=== PATIENT | female | born 1940 | race Caucasian/White ===

== ENCOUNTER 2018-09-10 09:30 | Day surgery (SDC) | payer OTHER ==
[~2018-09-10] VITALS: Ht 160 cm; Wt 115.0 kg
[~2018-09-10 09:30] MED LIST: AMLO10 PO; ATOR20 PO; METTREX2.5 PO; Neurontin300 MG PO; Prinivil10 MG PO; Synthroid25 MCG PO
== END 2018-09-10 11:29 | disposition home or self-care (01) ==
LOC: ORSCSDS 09:30
PROVIDERS: Internal Medicine Gastroenterology
PROC: 0DBK8ZX Excision of Ascending Colon, Via Natural or Artificial Opening Endoscopic, Diagnostic (ICD-10-PCS; principal; 2018-09-10 10:45)
PROC: 0DBM8ZX Excision of Descending Colon, Via Natural or Artificial Opening Endoscopic, Diagnostic (ICD-10-PCS; principal; 2018-09-10 10:45)
DX: Z12.11 Encounter for screening for malignant neoplasm of colon (principal); D12.2 Benign neoplasm of ascending colon; D12.4 Benign neoplasm of descending colon; K57.30 Diverticulosis of large intestine without perforation or abscess without bleeding; K64.8 Other hemorrhoids; I10 Essential (primary) hypertension; J44.9 Chronic obstructive pulmonary disease, unspecified; G47.33 Obstructive sleep apnea (adult) (pediatric); E66.01 Morbid (severe) obesity due to excess calories; Z68.41 Body mass index [BMI] 40.0-44.9, adult; Z79.899 Other long term (current) drug therapy
CPT/HCPCS: 88305; J7120

== ENCOUNTER 2018-11-19 21:29 | Emergency (ER) | payer OTHER ==
[~2018-11-19] VITALS: Ht 160 cm; Wt 114.3 kg
[2018-11-19] MEDS ORDERED: STIOLTO RESPIMAT4 GM INH (21:49)
[2018-11-19] MEDS ORDERED: Mobic15 MG PO (21:50)
[2018-11-19] MEDS ORDERED: TRAZ50 PO (21:50)
[2018-11-19] MEDS ORDERED: ALBU90OI61 INH (21:52)
[2018-11-20] MEDS ORDERED: EPIPEN 2-P0.3 MG/0.3 IM (00:38)
[2018-11-20] MEDS ORDERED: Prednisone20 MG PO (00:38)
== END 2018-11-20 00:58 | disposition home or self-care (01) ==
LOC: ER 21:29
DX: T78.3XXA Angioneurotic edema, initial encounter (principal); T46.4X5A Adverse effect of angiotensin-converting-enzyme inhibitors, initial encounter; Z88.8 Allergy status to other drugs, medicaments and biological substances; Z79.899 Other long term (current) drug therapy; I10 Essential (primary) hypertension; J44.9 Chronic obstructive pulmonary disease, unspecified; Z87.891 Personal history of nicotine dependence
CPT/HCPCS: 96374; 99283-25

== ENCOUNTER → 2021-12-14 | Outpatient (CLI) | payer OTHER ==
[~2021-12-14] MED LIST changes: +ALBU90OI61 INH; +EPIPEN 2-P0.3 MG/0.3 IM; +Mobic15 MG PO; +Prednisone20 MG PO; +STIOLTO RESPIMAT4 GM INH; +TRAZ50 PO
== END | disposition home or self-care (01) ==
LOC: PLD 08:09 → LAB SHORT 08:09
DX: L82.1 Other seborrheic keratosis (principal)
CPT/HCPCS: 88305

== ENCOUNTER → 2023-04-24 | Outpatient (CLI) | payer OTHER | LOC: LAB SHORT 16:00 → LAB 16:00 | PROVIDERS: Family Medicine | DX: Z79.899 Other long term (current) drug therapy (principal) | CPT/HCPCS: G0480 ==

== ENCOUNTER 2024-07-09 11:51 | Emergency (ER) | payer OTHER ==
[~2024-07-09] VITALS: Ht 160 cm; Wt 66.2 kg
[2024-07-09 12:07] VITALS: BP 179/76
[2024-07-09 12:28] LABS: BASOPHILS ABSOLUTE AUTO 0.04 K/mm3 (0.00-0.23); BASOPHILS PERCENT AUTO 1 % (0-2); EOSINOPHILS ABSOLUTE AUTO 0.13 K/mm3 (0.00-0.68); EOSINOPHILS PERCENT AUTO 3 % (0-6); Hematocrit 33.5 % (33.0-51.0); Hemoglobin 11.3 g/dL (11.5-16.0); IMMATURE GRAN ABSOLUTE AUTO 0.01 K/mm3 (0.00-0.10); IMMATURE GRAN PERCENT AUTO 0 % (0-1); LYMPHOCYTES ABSOLUTE AUTO 1.16 K/mm3 (0.84-5.20); LYMPHOCYTES PERCENT AUTO 22 % (21-46); MONOCYTES ABSOLUTE AUTO 0.36 K/mm3 (0.16-1.47); MONOCYTES PERCENT AUTO 7 % (4-13); Mean Corpuscular HGB Conc 33.7 g/dL (31.5-36.5); Mean Corpuscular Volume 98 fL (80-100); Mean Platelet Volume 8.7 fL (9.1-12.4); NEUTROPHILS ABSOLUTE AUTO 3.49 K/mm3 (1.96-9.15); NEUTROPHILS PERCENT AUTO 67 % (41-73); Platelet Count 274 K/mm3 (150-400); RDW Coefficient Variation 14.3 % (11.7-14.2); Red Blood Cell Count 3.42 M/mm3 (3.80-5.20); White Blood Cell Count 5.19 K/mm3 (4.00-11.30)
[2024-07-09 13:09] LABS: Albumin, Blood 2.9 g/dL (3.4-5.0); Albumin/Globulin Ratio 0.9 (0.8-1.8); Bilirubin, Total 0.6 mg/dL (0.1-1.0); Bun/Creatinine Ratio 20.7 (12.0-20.0); Calcium, Blood 9.2 mg/dL (8.5-10.1); Creatinine, Blood 0.63 mg/dL (0.40-1.00); Globulin, Blood 3.3 g/dL (2.2-4.0); Potassium, Blood 3.1 mmol/L (3.5-5.5); Total Protein, Blood 6.2 g/dL (6.4-8.2)
[2024-07-09] MEDS ORDERED: Veetids 500500 MG PO (13:36)
== END 2024-07-09 14:02 | disposition home or self-care (01) ==
LOC: ER 11:51
PROVIDERS: Physician Assistant
DX: N39.0 Urinary tract infection, site not specified (principal); G47.30 Sleep apnea, unspecified; M79.7 Fibromyalgia; I10 Essential (primary) hypertension; E03.9 Hypothyroidism, unspecified; J44.9 Chronic obstructive pulmonary disease, unspecified; Z87.891 Personal history of nicotine dependence; Z88.8 Allergy status to other drugs, medicaments and biological substances; Z79.899 Other long term (current) drug therapy
CPT/HCPCS: 80053; 85025; 99283

== ENCOUNTER → 2024-12-14 | Day surgery (SDC) | payer OTHER ==
[~2024-12-14] MED LIST changes: +FURO20 PO; +LEVSOD25 PO; +METHOTREXATE2.5 M3 PO; +METO25 PO; +METO25ER PO; +NAPR220 PO; +POTA10T PO; +VITAMIN B12 PO; +VITAMIN D310 MC4 PO; +Veetids 500500 MG PO; +[UNRECOGNIZED DRUG - OTHER] PO
[2024-12-14 16:19] LABS: BASOPHILS ABSOLUTE AUTO 0.05 K/mm3 (0.00-0.23); BASOPHILS PERCENT AUTO 1 % (0-2); EOSINOPHILS ABSOLUTE AUTO 0.13 K/mm3 (0.00-0.68); EOSINOPHILS PERCENT AUTO 2 % (0-6); Hematocrit 34.8 % (33.0-51.0); Hemoglobin 11.7 g/dL (11.5-16.0); IMMATURE GRAN ABSOLUTE AUTO 0.02 K/mm3 (0.00-0.10); IMMATURE GRAN PERCENT AUTO 0 % (0-1); LYMPHOCYTES ABSOLUTE AUTO 1.25 K/mm3 (0.84-5.20); LYMPHOCYTES PERCENT AUTO 15 % (21-46); MONOCYTES ABSOLUTE AUTO 0.94 K/mm3 (0.16-1.47); MONOCYTES PERCENT AUTO 11 % (4-13); Mean Corpuscular HGB 32.9 pg (26.0-34.0); Mean Corpuscular HGB Conc 33.6 g/dL (31.5-36.5); Mean Corpuscular Volume 98 fL (80-100); Mean Platelet Volume 8.9 fL (9.1-12.4); NEUTROPHILS PERCENT AUTO 72 % (41-73); Platelet Count 371 K/mm3 (150-400); RDW Coefficient Variation 13.5 % (11.7-14.2); RDW Standard Deviation 48.3 fL (35.1-46.3); Red Blood Cell Count 3.56 M/mm3 (3.80-5.20); White Blood Cell Count 8.59 K/mm3 (4.00-11.30)
[2024-12-14 18:50] LABS: Bun/Creatinine Ratio 21.4 (12.0-20.0); Calcium, Blood 9.4 mg/dL (8.5-10.1); Creatinine, Blood 0.56 mg/dL (0.40-1.00); Potassium, Blood 3.6 mmol/L (3.5-5.5)
== END ==
LOC: PRE 13:43
PROVIDERS: Orthopaedic Surgery
DX: M16.11 Unilateral primary osteoarthritis, right hip (principal); Z01.810 Encounter for preprocedural cardiovascular examination; Z01.812 Encounter for preprocedural laboratory examination; Z01.818 Encounter for other preprocedural examination
CPT/HCPCS: 36415; 80048; 85025; 93005; 93010

== ENCOUNTER 2024-12-29 07:45 | Day surgery (SDC) | payer OTHER ==
[~2024-12-29] VITALS: Ht 157.5 cm; Wt 57.6 kg
[2024-12-29] VITALS (12 sets, daily range): BP systolic 141–178; BP diastolic 60–81
[~2024-12-29 07:45] MED LIST changes: +CeFAZolin Sodium 2,000 MG in NS 100 ML IV SCH; +Chlorhexidine Mouth Care 15 ML UDC MT SCH; +Ropivacaine 0.5% HCl/Pf 123.125 MG,EPINEPHrine HCL 0.25 MG,Ketorolac Tromethamine 15 MG... INFIL SCH; -VITAMIN B12 PO; +VITAMIN B12500 MCG PO
[2024-12-29] MEDS ORDERED: Tranexamic Acid 100 ML IV SCH (07:47)
--- NOTE | 2024-12-29 08:43 | NUR ---
History, Chart, Medications and Allergies reviewed before start of procedure. Patient confirms NPO status and agrees with scheduled surgery. Daughter, Cira, at bedside with patient. Cira helped reconcile medication list, pt does not keep track of medications. Assistance needed to dress and transfer from w/c to bed due to c/o pain.
[2024-12-29] MEDS ORDERED: CeFAZolin Sodium 2,000 MG VIAL ONE (08:57)
--- NOTE | 2024-12-29 09:08 | NUR ---
RIGO LUNA PLACED PER PATIENT REQUEST.
[2024-12-29] MEDS ORDERED: Midazolam HCl 1MG / ML 2ML Vial ONE (10:24)
[2024-12-29] MEDS ORDERED: Dexamethasone Sod Phos 10 MG/ML 1ML VIAL ONE (10:38)
[2024-12-29] MEDS ORDERED: Ondansetron HCl 2 MG / ML 2ML Vial ONE (10:38)
[2024-12-29] MEDS ORDERED: Phenylephrine HCl 10mg/ml 1 ml Vial ONE ×2 (10:39→13:52)
[2024-12-29] MEDS ORDERED: Ondansetron HCl 2 MG / ML 2ML Vial IV PRN ×2 (11:00→11:10)
[2024-12-29] MEDS ORDERED: Albuterol 2.5 MG/3 ML VIAL INH PRN (11:00)
[2024-12-29] MEDS ORDERED: FentaNYL Citrate 50 MCG/ML 2 ML Injection IV PRN ×2 (11:00→11:05)
[2024-12-29] MEDS ORDERED: HYDROmorphone HCl/Pf 1MG SYR IV PRN ×3 (11:00→11:10)
[2024-12-29] MEDS ORDERED: HYDROcodone 5-APAP 325 TAB PO PRN (11:10)
[2024-12-29] MEDS ORDERED: Prochlorperazine Edisylate 10 mg Vial IV PRN (11:15)
[2024-12-29] MEDS ORDERED: Metoclopramide HCl 5MG / ML 2ML Vial IV PRN (11:20)
[2024-12-29] MEDS ORDERED: Magnesium Hydroxide Conc 10 ML UDC PO PRN (11:20)
[2024-12-29] MEDS ORDERED: Ketorolac Tromethamine 15mg Vial IV SCH (12:00)
[2024-12-29] MEDS ORDERED: FentaNYL Citrate 50 MCG/ML 2 ML Injection ONE (12:52)
--- NOTE | 2024-12-29 13:20 | NUR ---
POST OP ARRIVAL TO SURGICAL UNIT VIA HOSPITAL BED. ASSESSMENT CHARTED. PAIN TOLERABLE. CRYOTHERAPY TO R HIP. NO DRNG NOTED TO DRSG. SNACKS & DRINKS GIVEN.
[2024-12-29] MEDS ORDERED: ELIQUIS2.5 MG PO (15:45)
--- NOTE | 2024-12-29 17:05 | NUR ---
DISCHARGE PT WORKED w/ THERAPY. PAIN REASONABLY CONTROLLED. EATING, DRINKING, & VOIDING WELL. PT IS VERY WEAK & STRUGGLING TO KEEP R FOOT STRAIGHT BUT WANTS TO GO HOME & WILL HAVE FAMILY 07/01. IVONNE & DONATO SENT w/ PT. ESCORTED OUT VIA W/C.
[2024-12-29] MEDS ORDERED: CeFAZolin Sodium 2,000 MG in NS 100 ML IV SCH (18:00)
== END 2024-12-29 17:17 | disposition home or self-care (01) ==
LOC: ORSCMMR 07:45 → ORD 09:15 → ORSCMMR 09:15 → SURS 13:15 → ORD 14:00 → ORSCMMR 17:17
PROVIDERS: Orthopaedic Surgery
PROC: 0SR90J9 Replacement of Right Hip Joint with Synthetic Substitute, Cemented, Open Approach (ICD-10-PCS; principal; 2024-12-29 09:15)
DX: M16.11 Unilateral primary osteoarthritis, right hip (principal); I10 Essential (primary) hypertension; Z79.899 Other long term (current) drug therapy
CPT/HCPCS: 72170; 97110; 97116; 97162; 97530; A9270; C1713; C1776; J0165; J0690; J0735; J1100; J1885; J2250; J2371; J2405; J2704; J2795; J3010; J7120

== ENCOUNTER 2025-01-02 17:06 | Inpatient (IN) | payer OTHER ==
[~2025-01-02] VITALS: Ht 157.5 cm; Wt 68.6 kg
[~2025-01-02 17:06] MED LIST changes: -CeFAZolin Sodium 2,000 MG in NS 100 ML IV SCH; -Chlorhexidine Mouth Care 15 ML UDC MT SCH; +ELIQUIS2.5 MG PO; -Ropivacaine 0.5% HCl/Pf 123.125 MG,EPINEPHrine HCL 0.25 MG,Ketorolac Tromethamine 15 MG... INFIL SCH
[2025-01-02 18:23] LABS: BASOPHILS ABSOLUTE AUTO 0.04 K/mm3 (0.00-0.23); BASOPHILS PERCENT AUTO 0 % (0-2); EOSINOPHILS ABSOLUTE AUTO 0.17 K/mm3 (0.00-0.68); EOSINOPHILS PERCENT AUTO 2 % (0-6); Hematocrit 25.9 % (33.0-51.0); Hemoglobin 8.7 g/dL (11.5-16.0); IMMATURE GRAN ABSOLUTE AUTO 0.06 K/mm3 (0.00-0.10); IMMATURE GRAN PERCENT AUTO 1 % (0-1); LYMPHOCYTES ABSOLUTE AUTO 1.82 K/mm3 (0.84-5.20); LYMPHOCYTES PERCENT AUTO 19 % (21-46); MONOCYTES ABSOLUTE AUTO 1.61 K/mm3 (0.16-1.47); MONOCYTES PERCENT AUTO 16 % (4-13); Mean Corpuscular HGB Conc 33.6 g/dL (31.5-36.5); Mean Corpuscular Volume 99 fL (80-100); NEUTROPHILS ABSOLUTE AUTO 6.13 K/mm3 (1.96-9.15); NEUTROPHILS PERCENT AUTO 62 % (41-73); NRBC ABSOLUTE 0.00 K/mm3 (0.00-0.02); NRBC Auto 0.0 /100 WBC (0.0-0.2); Platelet Count 461 K/mm3 (150-400); RDW Coefficient Variation 14.4 % (11.7-14.2); RDW Standard Deviation 49.5 fL (35.1-46.3)
[2025-01-02 18:47] LABS: Anion Gap 8.0 mmol/L (3-11); Blood Urea Nitrogen 27.0 mg/dL (8-24); CO2, Blood 29.0 mmol/L (21-32); Calcium, Blood 8.9 mg/dL (8.5-10.1); Chloride, Blood 100.0 mmol/L (98-108); Creatinine, Blood 0.58 mg/dL (0.40-1.00); Glucose, Blood 111.0 mg/dL (70-99); Potassium, Blood 3.5 mmol/L (3.5-5.5); Sodium, Blood 133.0 mmol/L (136-145)
[2025-01-02] MEDS ORDERED: Propofol 10mg/ml 20 ml Vial (Procedural) IV SCH (18:50)
[2025-01-02] MEDS ORDERED: NS 1,000 ML IV ONE (19:29)
[2025-01-02] MEDS ORDERED: OxyCODONE 5 mg/Acetamin 325 mg TABLET PO PRN (22:15)
[2025-01-03 00:27] VITALS: BP 167/70
[2025-01-03] MEDS ORDERED: FentaNYL Citrate 50 MCG/ML 2 ML Injection IV PRN (01:40)
[2025-01-03] MEDS ORDERED: Saline Nasal Spray 45 ML PRN (01:40)
[2025-01-03 04:54] VITALS: BP 170/83
[2025-01-03 05:51] LABS: BASOPHILS ABSOLUTE AUTO 0.04 K/mm3 (0.00-0.23); BASOPHILS PERCENT AUTO 1 % (0-2); EOSINOPHILS ABSOLUTE AUTO 0.21 K/mm3 (0.00-0.68); EOSINOPHILS PERCENT AUTO 3 % (0-6); Hematocrit 23.5 % (33.0-51.0); Hemoglobin 7.7 g/dL (11.5-16.0); IMMATURE GRAN ABSOLUTE AUTO 0.05 K/mm3 (0.00-0.10); IMMATURE GRAN PERCENT AUTO 1 % (0-1); LYMPHOCYTES ABSOLUTE AUTO 1.52 K/mm3 (0.84-5.20); LYMPHOCYTES PERCENT AUTO 19 % (21-46); MONOCYTES ABSOLUTE AUTO 1.30 K/mm3 (0.16-1.47); MONOCYTES PERCENT AUTO 16 % (4-13); Mean Corpuscular HGB Conc 32.8 g/dL (31.5-36.5); Mean Corpuscular Volume 99 fL (80-100); NEUTROPHILS ABSOLUTE AUTO 4.97 K/mm3 (1.96-9.15); NEUTROPHILS PERCENT AUTO 61 % (41-73); NRBC ABSOLUTE 0.00 K/mm3 (0.00-0.02); NRBC Auto 0.0 /100 WBC (0.0-0.2); Platelet Count 367 K/mm3 (150-400); RDW Coefficient Variation 14.6 % (11.7-14.2); RDW Standard Deviation 48.9 fL (35.1-46.3)
[2025-01-03 06:19] LABS: Alanine Aminotransfer (ALT/SGP 18.0 U/L (12-78); Albumin, Blood 2.1 g/dL (3.4-5.0); Albumin/Globulin Ratio 0.7 (0.8-1.8); Anion Gap 7.0 mmol/L (3-11); Aspartate Aminotrans (AST/SGOT 31.0 U/L (12-37); Bilirubin, Total 1.2 mg/dL (0.1-1.0); Blood Urea Nitrogen 26.0 mg/dL (8-24); CO2, Blood 29.0 mmol/L (21-32); Calcium, Blood 8.5 mg/dL (8.5-10.1); Chloride, Blood 102.0 mmol/L (98-108); Creatinine, Blood 0.63 mg/dL (0.40-1.00); Globulin, Blood 3.2 g/dL (2.2-4.0); Glucose, Blood 95.0 mg/dL (70-99); Potassium, Blood 3.5 mmol/L (3.5-5.5); Sodium, Blood 134.0 mmol/L (136-145); Total Protein, Blood 5.3 g/dL (6.4-8.2)
--- NOTE | 2025-01-03 06:31 | NUR ---
SPOT FACER SUMMARY PT IS A [facility] AD[facility]. PT HAS A DISLOCATION OF HER R HIP THAT HAD INITIAL SURGERY ON IT 12/29. R HIP WITH SOME SWELLING AND REDNESS WITH PREVIOUS DRESSING IN PLACE AND INTACT. PT WITH SOME SCATTERED SCABS AND BRUISES ON LEGS AND ARMS. PT ALSO HAS A SMALL OPEN SORE ON HER COCCYX THAT PT REPORTS IS CHRONIC PSORIASIS. PAIN HAS BEEN CONTROLLED WITH PRN PERCOCET, ALSO OBTAINED ORDER FOR IV FENTANYL TO BE GIVE ONCE PT BECAME NPO. ORTHO CONSULT CALLED FOR REPAIR OF R HIP LATER TODAY. SARAH, ARACELI.
[2025-01-03 07:32] VITALS: BP 184/77
[2025-01-03 10:21] VITALS: BP 166/52
[2025-01-03] MEDS ORDERED: Albuterol HFA200 ACT/6.7 GM INH INH PRN (12:00)
[2025-01-03 16:30] VITALS: BP 160/57
--- NOTE | 2025-01-03 19:36 | NUR ---
SHIFT SUMMARY PLAN FOR NPO AT MIDNIGHT FOR POSSIBLE OR TOMORROW. PT'S FAMILY HAS BEEN AT THE BEDSIDE AND SUPPORTIVE T/O THE DAY. PT HAS A STAGE 2 PRESSURE INJURY ON HER L BUTTOCK, PT AND FAMILY STATES THIS WAS PRESENT PRIOR TO ADMIT. PT HAS TOLERATED PO. PAIN MANAGED WITH PO PAIN MEDICATION AND ICE. PT IS FORGETFUL AT TIMES. BEDSIDE REPORT GIVEN TO EDITH LAKHANI
[2025-01-03 20:57] VITALS: BP 157/76
[2025-01-04] VITALS (23 sets, daily range): BP systolic 134–208; BP diastolic 53–100
[2025-01-04] MEDS ORDERED: CeFAZolin Sodium 2,000 MG in NS 100 ML IV SCH ×2 (00:01→12:50)
[2025-01-04] MEDS ORDERED: Tranexamic Acid 100 ML IV SCH (00:01)
[2025-01-04 04:57] LABS: BASOPHILS ABSOLUTE AUTO 0.04 K/mm3 (0.00-0.23); BASOPHILS PERCENT AUTO 1 % (0-2); EOSINOPHILS ABSOLUTE AUTO 0.29 K/mm3 (0.00-0.68); EOSINOPHILS PERCENT AUTO 4 % (0-6); Hematocrit 23.3 % (33.0-51.0); Hemoglobin 7.6 g/dL (11.5-16.0); IMMATURE GRAN ABSOLUTE AUTO 0.03 K/mm3 (0.00-0.10); IMMATURE GRAN PERCENT AUTO 0 % (0-1); LYMPHOCYTES ABSOLUTE AUTO 1.21 K/mm3 (0.84-5.20); LYMPHOCYTES PERCENT AUTO 15 % (21-46); MONOCYTES ABSOLUTE AUTO 1.72 K/mm3 (0.16-1.47); MONOCYTES PERCENT AUTO 21 % (4-13); Mean Corpuscular HGB Conc 32.6 g/dL (31.5-36.5); Mean Corpuscular Volume 99 fL (80-100); NEUTROPHILS ABSOLUTE AUTO 5.08 K/mm3 (1.96-9.15); NEUTROPHILS PERCENT AUTO 61 % (41-73); NRBC ABSOLUTE 0.00 K/mm3 (0.00-0.02); NRBC Auto 0.0 /100 WBC (0.0-0.2); Platelet Count 373 K/mm3 (150-400); RDW Coefficient Variation 15.1 % (11.7-14.2); RDW Standard Deviation 50.9 fL (35.1-46.3)
--- NOTE | 2025-01-04 05:12 | NUR ---
PORTAL DEVELOPER SUMMARY NO ACUTE CHANGES THIS SHIFT. PT STILL AWAITING R HIP REPAIR LATER TODAY, HAS BEEN NPO SINCE MIDNIGHT. PT STILL WITH SOME PAIN AND SWELLING TO R HIP, MEDICATED WITH PERCOCET 1 TAB PER MAR WITH GOOD PAIN CONTROL. PUREWICK EXTERNAL URINE CATHETER IN PLACE FOR COMFORT AND INCONTINENCE. REPOSITIONED SIDE TO SIDE DUE TO IMMOBILITY AND SMALL PRESSURE INJURY ON COCCYX THAT HER DTRS SAY SHE HAS HAD FOR QUITE AWHILE. VITALS STABLE, WCTM.
[2025-01-04 05:23] LABS: Anion Gap 8.0 mmol/L (3-11); Blood Urea Nitrogen 15.0 mg/dL (8-24); CO2, Blood 29.0 mmol/L (21-32); Calcium, Blood 8.2 mg/dL (8.5-10.1); Chloride, Blood 98.0 mmol/L (98-108); Creatinine, Blood 0.62 mg/dL (0.40-1.00); Glucose, Blood 99.0 mg/dL (70-99); Potassium, Blood 3.5 mmol/L (3.5-5.5); Sodium, Blood 131.0 mmol/L (136-145)
--- NOTE | 2025-01-04 12:18 | NUR ---
PATIENT TRANSFERRED OFF UNIT VIA BED FOR PROCEDURE
[2025-01-04] MEDS ORDERED: FentaNYL Citrate 50 MCG/ML 2 ML Injection ONE ×2 (13:04→14:48)
[2025-01-04] MEDS ORDERED: Ondansetron HCl 2 MG / ML 2ML Vial ONE (13:04)
[2025-01-04] MEDS ORDERED: Dexamethasone Sod Phos 10 MG/ML 1ML VIAL ONE (13:04)
[2025-01-04] MEDS ORDERED: Phenylephrine HCl 100 MCG/ML-NS 10MLSYR (1MG/10ML) ONE (13:04)
--- NOTE | 2025-01-04 13:06 | NUR ---
TO [facility] FOR PROCEDURE. RIGHT HIP BRUISED, BUT CDI. REPORTS 9/10 PAIN. History, Chart, Medications and Allergies reviewed before start of procedure. Lungs clear T/O to Auscultation. Patient confirms NPO status and agrees with scheduled surgery. Pre-Op teaching done. Pt verbalizes understanding.
[2025-01-04] MEDS ORDERED: Sugammadex Sodium 200 MG/2ML SDV (100 MG/ML) ONE (14:34)
[2025-01-04] MEDS ORDERED: HYDROmorphone HCl/Pf 1MG SYR IV PRN ×2 (14:55→15:00)
[2025-01-04] MEDS ORDERED: HydrALAZINE HCl 20 MG / ML 1ML Vial IV PRN (15:00)
[2025-01-04] MEDS ORDERED: Ondansetron HCl 2 MG / ML 2ML Vial IV PRN (15:00)
[2025-01-04] MEDS ORDERED: FentaNYL Citrate 50 MCG/ML 2 ML Injection IV PRN ×2 (15:00)
[2025-01-04] MEDS ORDERED: Metoclopramide HCl 5MG / ML 2ML Vial IV PRN (15:00)
[2025-01-04] MEDS ORDERED: HydrALAZINE HCl 20 MG / ML 1ML Vial ONE (15:36)
--- NOTE | 2025-01-04 16:47 | NUR ---
RETURN TO UNIT AFTER RECEIVING REPORT FROM ENGINE COWLING INSTALLER, PATIENT TRANSFERRED BACK TO ROOM VIA BED AT APPROX 1630. PATIENT ALERT - COMMUNICATING NEEDS EFFECTIVELY. S/P R HIP REDUCTION. VSS. WEDGE IN PLACE. CAP REFILL <3 SECONDS. PPP. PAIN TOLERABLE AT THIS TIME. DENIES N/V - WATER AND SNACKS WITHIN REACH. PW PLACED. FAMILY AT BEDSIDE. CALL LIGHT IN REACH.
--- NOTE | 2025-01-04 16:52 | NUR ---
GLASSES CLEAN AND WITH PATIENT. CAP REFIL 3 SECS. PATIENT CAN WIGGLE TOES. TOES PINK AND WARM.
--- NOTE | 2025-01-04 17:36 | NUR ---
SHIFT SUMMARY NO ACUTE CHANGES SINCE PREVIOUS NOTES. PATIENT REMAINS ALERT AND ORIENTED X3-4 W/ OCCASIONAL EPISODES OF FORGETFULNESS. EASILY REDIRECTABLE. S/P CLOSED REDUCTION OF R HIP. PPP. CAP REFILL <3 SECONDS. WEDGE REMAINS IN PLACE. MANAGING PAIN PER EMAR. SBP 150s-160s POST OP - PATIENT DENIES CHEST PAIN, PRESSURE. PATIENT TO RECEIVE SCHEDULED PO METOPROLOL THIS EVENING. RECEIVED A DOSE OF 5MG IV HYDRALAZINE IN PACU PRIOR TO TRANSFER. REMAINS ON ROOM AIR, SATs >90%. DENIES SOB. PW AND ATTENDS IN PLACE FOR BASELINE INCONTINENCE. X1 SMALL BM TODAY. TOLERATING PO INTAKE. PRINEO AND TEGADERM DRESSING FROM R DANGELO 12/29 C/D/I. CALL LIGHT IN REACH. MULTIPLE FAMILY MEMBERS AT BEDSIDE.
--- NOTE | 2025-01-04 18:05 | NUR ---
UPDATE MD AGUILAR ROUNDING ON UNIT THIS EVENING. PATIENT TO BE NPO AT MIDNIGHT FOR OPEN REDUCTION AND POSSIBLE REVISION TOMORROW.
[2025-01-05] VITALS (19 sets, daily range): BP systolic 113–153; BP diastolic 47–89
[2025-01-05 04:24] LABS: BASOPHILS ABSOLUTE AUTO 0.00 K/mm3 (0.00-0.23); BASOPHILS PERCENT AUTO 0 % (0-2); EOSINOPHILS ABSOLUTE AUTO 0.00 K/mm3 (0.00-0.68); EOSINOPHILS PERCENT AUTO 0 % (0-6); Hematocrit 23.0 % (33.0-51.0); Hemoglobin 7.6 g/dL (11.5-16.0); IMMATURE GRAN ABSOLUTE AUTO 0.04 K/mm3 (0.00-0.10); IMMATURE GRAN PERCENT AUTO 1 % (0-1); LYMPHOCYTES ABSOLUTE AUTO 0.42 K/mm3 (0.84-5.20); LYMPHOCYTES PERCENT AUTO 7 % (21-46); MONOCYTES ABSOLUTE AUTO 0.75 K/mm3 (0.16-1.47); MONOCYTES PERCENT AUTO 12 % (4-13); Mean Corpuscular HGB Conc 33.0 g/dL (31.5-36.5); Mean Corpuscular Volume 100 fL (80-100); NEUTROPHILS ABSOLUTE AUTO 5.27 K/mm3 (1.96-9.15); NEUTROPHILS PERCENT AUTO 81 % (41-73); NRBC ABSOLUTE 0.00 K/mm3 (0.00-0.02); NRBC Auto 0.0 /100 WBC (0.0-0.2); Platelet Count 392 K/mm3 (150-400); RDW Coefficient Variation 15.3 % (11.7-14.2); RDW Standard Deviation 52.7 fL (35.1-46.3)
[2025-01-05 05:49] LABS: Ferritin, Serum 179.0 ng/mL (8-252); Total Iron Binding Capacity 155.0 ug/dL (250-450)
[2025-01-05 06:00] LABS: Anion Gap 4.0 mmol/L (3-11); Blood Urea Nitrogen 21.0 mg/dL (8-24); CO2, Blood 32.0 mmol/L (21-32); Calcium, Blood 8.4 mg/dL (8.5-10.1); Chloride, Blood 99.0 mmol/L (98-108); Creatinine, Blood 0.65 mg/dL (0.40-1.00); Glucose, Blood 131.0 mg/dL (70-99); Potassium, Blood 4.6 mmol/L (3.5-5.5); Sodium, Blood 130.0 mmol/L (136-145)
--- NOTE | 2025-01-05 06:35 | NUR ---
DISTRICT MANAGER IN TRAINING SUMMARY NO ACUTE CHANGES THIS SHIFT. PT AAOX4 AND PLEASANT. POD 0 FOR R HIP REDUCTION. STILL WITH SOME PAIN TO R HIP THAT HAS BEEN WELL MANAGED WITH PRN PAIN MEDS, SEE MAR. NPO SINCE MIDNIGHT IN PREP FOR PROCEDURE LATER TODAY FOR POSSIBLE REVISION OF R HIP. SARAH, ARACELI.
--- NOTE | 2025-01-05 08:34 | NUR ---
PATIENT TRANSFERRED OFF UNIT VIA BED FOR PROCEDURE.
[2025-01-05] MEDS ORDERED: Chlorhexidine Mouth Care 15 ML UDC MT SCH (08:50)
[2025-01-05] MEDS ORDERED: CeFAZolin Sodium 2,000 MG in NS 100 ML IV SCH (08:50)
[2025-01-05] MEDS ORDERED: Ropivacaine 0.5% HCl/Pf 123.125 MG,EPINEPHrine HCL 0.25 MG,Ketorolac Tromethamine 15 MG... INFIL SCH (08:50)
[2025-01-05] MEDS ORDERED: FentaNYL Citrate 50 MCG/ML 2 ML Injection IV PRN ×2 (08:55)
[2025-01-05] MEDS ORDERED: Ondansetron HCl 2 MG / ML 2ML Vial IV PRN (08:55)
[2025-01-05] MEDS ORDERED: Folic Acid 1 MG TAB PO SCH (09:00)
[2025-01-05] MEDS ORDERED: HYDROmorphone HCl/Pf 1MG SYR IV PRN (09:00)
[2025-01-05] MEDS ORDERED: Albuterol 2.5 MG/3 ML VIAL INH PRN (09:00)
[2025-01-05] MEDS ORDERED: CeFAZolin Sodium 2,000 MG VIAL ONE (09:06)
--- NOTE | 2025-01-05 09:29 | NUR ---
0835 PT INTO [facility] VIA BED FOR RIGHT HIP REVISION. PT IS CURRENTLY IN A ABDUCTION PILLOW. NO STARK. PT REPORTS USING A PURE WICK RECENTLY Pre-Op teaching done. Pt verbalizes understanding. History, Chart, Medications and Allergies reviewed before start of procedure.Patient confirms NPO status and agrees with scheduled surgery.
[2025-01-05] MEDS ORDERED: Ondansetron HCl 2 MG / ML 2ML Vial ONE (11:34)
[2025-01-05] MEDS ORDERED: Dexamethasone Sod Phos 10 MG/ML 1ML VIAL ONE (11:34)
[2025-01-05] MEDS ORDERED: FentaNYL Citrate 50 MCG/ML 2 ML Injection ONE ×2 (11:35→13:15)
--- NOTE | 2025-01-05 13:43 | NUR ---
RETURN TO UNIT PATIENT RETURNED TO UNIT VIA BED FROM PACU AT APPROX 1525. S/P EXPLORATORY OF R HIP W/ I&D. PATIENT ALERT - COMMUNICATING NEEDS EFFECTIVELY. VSS. DENIES PAIN AT THIS TIME. JOSELUIS DRESSING TO R HIP C/D/I. PPP. CAP REFILL <[address] DRAINING YELLOW URINE TO GRAVITY. PLAN FOR TRANSFER TO A HIGHER SPECIALITY OF CARE FOR FURTHER CARE. FAMILY AT BEDSIDE. CALL LIGHT IN REACH.
--- NOTE | 2025-01-05 17:03 | NUR ---
SHIFT SUMMARY NO ACUTE CHANGES THIS SHIFT. PATIENT REMAINS ALERT AND ORIENTED X3-4 W/ OCCASIONAL EPISODES OF FORGETFULNESS. EASILY REDIRECTABLE. COMMUNICATES NEEDS EFFECTIVELY. S/P EXPLORATORY OF R HIP W/ I&D FOLLOWING CLOSED REDUCTION 01/04/25. VSS. PAIN TOLERABLE AT THIS TIME. JOSELUIS DX C/D/I. PPP. CAP REFILL <3 SECONDS. TOLERATING PO INTAKE. STARK CATHETER IN PLACE - DRAINING YELLOW URINE TO GRAVITY. AWAITING TRANSFER TO HIGHER LEVEL OF CARE FOR FURTHER SURGICAL INTERVENTION. FAMILY AT BEDSIDE. CALL LIGHT IN REACH.
[2025-01-06 04:39] VITALS: BP 147/61
[2025-01-06 05:06] LABS: BASOPHILS ABSOLUTE AUTO 0.00 K/mm3 (0.00-0.23); BASOPHILS PERCENT AUTO 0 % (0-2); EOSINOPHILS ABSOLUTE AUTO 0.00 K/mm3 (0.00-0.68); EOSINOPHILS PERCENT AUTO 0 % (0-6); Hematocrit 22.2 % (33.0-51.0); Hemoglobin 7.3 g/dL (11.5-16.0); IMMATURE GRAN ABSOLUTE AUTO 0.03 K/mm3 (0.00-0.10); IMMATURE GRAN PERCENT AUTO 0 % (0-1); LYMPHOCYTES ABSOLUTE AUTO 0.67 K/mm3 (0.84-5.20); LYMPHOCYTES PERCENT AUTO 7 % (21-46); MONOCYTES ABSOLUTE AUTO 0.48 K/mm3 (0.16-1.47); MONOCYTES PERCENT AUTO 5 % (4-13); Mean Corpuscular HGB Conc 32.9 g/dL (31.5-36.5); Mean Corpuscular Volume 100 fL (80-100); NEUTROPHILS ABSOLUTE AUTO 8.32 K/mm3 (1.96-9.15); NEUTROPHILS PERCENT AUTO 88 % (41-73); NRBC ABSOLUTE 0.00 K/mm3 (0.00-0.02); NRBC Auto 0.0 /100 WBC (0.0-0.2); Platelet Count 468 K/mm3 (150-400); RDW Coefficient Variation 15.5 % (11.7-14.2); RDW Standard Deviation 53.4 fL (35.1-46.3)
--- NOTE | 2025-01-06 05:26 | NUR ---
NOC SUMMARY- PT REMAINS ON BEDREST. PT REPOSITIONED TOLERATED. PT DRESSING COMPRESSED AND C/D/I. PT PAIN MANAGED WELL. PT STARK DRAINING TO GRAVITY. PT RESTING IN NO DISTRESS. CALL LIGHT IN REACH.
[2025-01-06 05:30] LABS: Anion Gap 6.0 mmol/L (3-11); Blood Urea Nitrogen 26.0 mg/dL (8-24); CO2, Blood 32.0 mmol/L (21-32); Calcium, Blood 8.2 mg/dL (8.5-10.1); Chloride, Blood 98.0 mmol/L (98-108); Creatinine, Blood 0.72 mg/dL (0.40-1.00); Glucose, Blood 112.0 mg/dL (70-99); Potassium, Blood 4.8 mmol/L (3.5-5.5); Sodium, Blood 131.0 mmol/L (136-145)
[2025-01-06 07:17] VITALS: BP 130/51
[2025-01-06] MEDS ORDERED: HYDROCODONE-AC1 EA19 PO (11:30)
[2025-01-06] MEDS ORDERED: LORA10ER PO (11:30)
[2025-01-06] MEDS ORDERED: AZELASTINE137 MCG/06 (11:31)
[2025-01-06 12:28] LABS: Hematocrit 22.4 % (33.0-51.0); Hemoglobin 7.3 g/dL (11.5-16.0)
--- NOTE | 2025-01-06 14:06 | NUR ---
Pt. is awake in bed and welcomed my visit. Pt. is pleasant bot on occasion has difficulty comin gup with the proper words. Facilitated a life review and considered matters of her family as well as matters of frank and belief. Listen with interest and a comforting presence. Pt. verbalized about a broken relationship with one of her sons. Listened with empathy and compassion. Pt. displayed evidence of trust and a general sense of engagement. Prayed for the Pt. Pt. verbalized gratitude for the spiritual care visit. Pts. daughter arived after we prayed together.
[2025-01-06 14:18] VITALS: BP 119/53
--- NOTE | 2025-01-06 14:55 | NUR ---
ASSUMING CARE OF PT FROM DAKOTA Strong RN. PT RESTING IN BED, CALL LIGHT IN REACH. DAUGHTER BEDSIDE. DENIES ANY NEEDS AT THIS TIME.
--- NOTE | 2025-01-06 15:03 | NUR ---
REPORT OFF TO PHILIP LAKHANI TO ASSUME CARE. PICTURES TAKEN OF PRESSURE ULCER ON COOCCYX PLACED IN CHART. NEW MEPILEX PLACED. PATIENT MEDICTED FOR PAIN AND IS RESTING AT THIS TIME.
--- NOTE | 2025-01-06 17:02 | NUR ---
SUMMARY NO ACUTE CHANGES SINCE ASSUMING CARE OF PT THIS AFTERNOON. RESTING IN BED, CALL LIGHT IN REACH. AWAITING TRANSFER TO HIGHER LEVEL OF CARE.
[2025-01-06 19:53] VITALS: BP 116/46
[2025-01-06 20:51] VITALS: BP 117/42
[2025-01-06 22:07] VITALS: BP 130/50
[2025-01-07] VITALS (10 sets, daily range): BP systolic 105–129; BP diastolic 45–72
[2025-01-07 04:31] LABS: BASOPHILS ABSOLUTE AUTO 0.01 K/mm3 (0.00-0.23); BASOPHILS PERCENT AUTO 0 % (0-2); EOSINOPHILS ABSOLUTE AUTO 0.19 K/mm3 (0.00-0.68); EOSINOPHILS PERCENT AUTO 2 % (0-6); Hematocrit 20.3 % (33.0-51.0); Hemoglobin 6.5 g/dL (11.5-16.0); IMMATURE GRAN ABSOLUTE AUTO 0.03 K/mm3 (0.00-0.10); IMMATURE GRAN PERCENT AUTO 0 % (0-1); LYMPHOCYTES ABSOLUTE AUTO 2.90 K/mm3 (0.84-5.20); LYMPHOCYTES PERCENT AUTO 31 % (21-46); MONOCYTES ABSOLUTE AUTO 0.84 K/mm3 (0.16-1.47); MONOCYTES PERCENT AUTO 9 % (4-13); Mean Corpuscular HGB Conc 32.0 g/dL (31.5-36.5); Mean Corpuscular Volume 102 fL (80-100); NEUTROPHILS ABSOLUTE AUTO 5.26 K/mm3 (1.96-9.15); NEUTROPHILS PERCENT AUTO 57 % (41-73); NRBC ABSOLUTE 0.00 K/mm3 (0.00-0.02); NRBC Auto 0.0 /100 WBC (0.0-0.2); Platelet Count 397 K/mm3 (150-400); RDW Coefficient Variation 15.8 % (11.7-14.2); RDW Standard Deviation 55.9 fL (35.1-46.3)
[2025-01-07 04:54] LABS: Anion Gap 5.0 mmol/L (3-11); Blood Urea Nitrogen 26.0 mg/dL (8-24); CO2, Blood 31.0 mmol/L (21-32); Calcium, Blood 8.0 mg/dL (8.5-10.1); Chloride, Blood 100.0 mmol/L (98-108); Creatinine, Blood 0.78 mg/dL (0.40-1.00); Glucose, Blood 88.0 mg/dL (70-99); Potassium, Blood 4.3 mmol/L (3.5-5.5); Sodium, Blood 132.0 mmol/L (136-145)
--- NOTE | 2025-01-07 06:31 | NUR ---
CALL TO HOSPITALIST. CALL PLACED TO HOSPITALIST REGARDING LAB RESULTS RECEIVED THIS MORNING. HGB 6.5 AND HCT 20.3. NEW ORDERS RECEIVED FOR 1 UNIT OF RED BLOOD CELLS.
--- NOTE | 2025-01-07 07:54 | NUR ---
SHIFT SUMMARY NOC. PT POD 3 FOR FAILED OPEN REDUCTION OF RIGHT HIP. PT A/O X3-4 FORGETFUL AT TIMES BUT CALLS APPROPRIATELY AND MAKES NEEDS KNOWN. PT MEDICATED FOR PAIN PER EMAR. RIGHT HIP IS SWOLLEN AND FIRM, DRESSING C/D/I. DENIES N/T, WIGGLES TOES WHEN ASKED. CALL LIGHT IN REACH.
[2025-01-07] MEDS ORDERED: NS 500 ML IV SCH (08:50)
[2025-01-07] MEDS ORDERED: Fluticasone 0.05% Nasal Spray PRN (11:05)
--- NOTE | 2025-01-07 15:03 | NUR ---
Pt. is awake in bed. Pt. is pleasant. Two daughters are present. family verbalized an expectation that the Pt. would be transferred to [facility] in [place] when a bed becomes available. Facilitate other updates. Pt. displays evidence of a positive and trusting spirit as she prepares for her transfer and higher level of care. Prayed with the Pt. Pt. and daughters verbalized gratitude for the spiritual care visit.
--- NOTE | 2025-01-07 16:54 | NUR ---
ASSUMPTION OF CARE ASSUMED CARE OF PT @0700. AXO3 - FORGETFUL AT TIMES. BEDREST R/T TO DISLOCATED R HIP, PAINFUL, MEDS PER EMAR. FOELY IN PLACE POSTOP, CLEANED, PATENT, AND DRAINING YELLOW URINE. PT BEING REPOSITIONED BY STAFF DUE TO BED REST AND EXISTING / PREVIOUS PRESSURE INJURY TO SACRUM - MEPILEX IN PLACE. PT RECEIVED 1UPRBC'S THIS SHIFT, AWAITING H+H RECHECK. FAMILY IN ROOM FOR MAJORITY OF SHIFT. 1700 - PT HAS BED PLACEMENT AT [place] [id number]. AMBULANCE COMPANY CALLED, AWAITING TRANSPORT. WILL CALL REPORT TO ONBOARDING FACILITY. PT AND FAMILY MADE AWARE OF IMPENDING TRANSFER. QUESTIONS/CONCERNS TO BE ANSWERED AND ADDRESSED.
--- NOTE | 2025-01-07 18:08 | NUR ---
DC'D @1808. AMBULANCE TEAM TO ROOM. BELONGINGS WITH PT. DAUGHTER AT BEDSIDE DURING TRANSFER PROCESS. VSS.PT PULLED OVER TO [facility] WITH 4 STAFF MEMBERS. PT MEDICATED WITH 5MG PERCOCET FOR PAIN. FINISHED DINNER AND OUT OF ROOM @1808.
== END 2025-01-07 18:10 | disposition short-term general hospital (02) | DRG 561 ==
LOC: ER 17:06 → SURS 17:07 → ER 20:39 → SURS 23:58
PROVIDERS: Emergency Medicine; Family Medicine; Internal Medicine; Orthopaedic Surgery Sports Medicine; ADMIT Student in an Organized Health Care Education/Training Program
PROC: 0QS4XZZ Reposition Right Acetabulum, External Approach (ICD-10-PCS; principal; 2025-01-04 14:30)
PROC: 30233N1 Transfusion of Nonautologous Red Blood Cells into Peripheral Vein, Percutaneous Approach (ICD-10-PCS; 2025-01-07)
DX: T84.020A Dislocation of internal right hip prosthesis, initial encounter (principal); I10 Essential (primary) hypertension; G47.33 Obstructive sleep apnea (adult) (pediatric); L40.59 Other psoriatic arthropathy; E78.1 Pure hyperglyceridemia; Z88.8 Allergy status to other drugs, medicaments and biological substances; Z79.899 Other long term (current) drug therapy; M79.7 Fibromyalgia; E03.9 Hypothyroidism, unspecified; J44.9 Chronic obstructive pulmonary disease, unspecified; Z87.19 Personal history of other diseases of the digestive system; Z90.49 Acquired absence of other specified parts of digestive tract; Z98.51 Tubal ligation status; Z87.891 Personal history of nicotine dependence; D64.9 Anemia, unspecified; G89.29 Other chronic pain; M81.0 Age-related osteoporosis without current pathological fracture
CPT/HCPCS: 36415; 36430; 72192; 73502; 80048; 80053; 82607; 82728; 82746; 83540; 83550; 85014; 85018; 85025; 86850; 86900; 86901; 86923; 94762; A9270; J0165; J0360; J0690; J0735; J1100; J1885; J2371; J2405; J2704; J2795; J3010; J7030; J7040; J7120; J8610; P9016

== ENCOUNTER 2025-02-02 15:58 | Inpatient (IN) | payer OTHER ==
[~2025-02-02] VITALS: Ht 157.5 cm; Wt 68.8 kg
[~2025-02-02 15:58] MED LIST changes: +AZELASTINE137 MCG/06; +HYDROCODONE-AC1 EA19 PO; +LORA10ER PO
[2025-02-04 16:41] VITALS: BP 122/48
[2025-02-04] MEDS ORDERED: Acetaminophen325 M1 PO (17:51)
[2025-02-04] MEDS ORDERED: ALMACONE SUSPE355 ML PO (17:53)
[2025-02-04] MEDS ORDERED: AMLO5 PO (17:53)
[2025-02-04] MEDS ORDERED: BENMENLOZ PO (17:54)
[2025-02-04] MEDS ORDERED: BENZ100A PO (18:05)
[2025-02-04] MEDS ORDERED: BISA10S PR (18:05)
[2025-02-04] MEDS ORDERED: Calcium Carbon500 MG PO (18:06)
[2025-02-04] MEDS ORDERED: ENEMEEZ PR (18:11)
[2025-02-04] MEDS ORDERED: Q-Tussin100 MG/5 M PO (18:13)
[2025-02-04] MEDS ORDERED: Flonase 0.05% N16 GM (18:13)
[2025-02-04] MEDS ORDERED: FOLI1 PO (18:13)
[2025-02-04] MEDS ORDERED: OMEP20ER PO (18:14)
[2025-02-04] MEDS ORDERED: MIRALAX17 GM PO (18:14)
[2025-02-04] MEDS ORDERED: ONDA4ODT MM (18:14)
[2025-02-04] MEDS ORDERED: SENNA LAXATIVE8.6 MG PO (18:15)
[2025-02-04] MEDS ORDERED: NASAL SPRAY88 ML (18:16)
[2025-02-04] MEDS ORDERED: TAMS.4ER PO (18:16)
[2025-02-04] MEDS ORDERED: STIOLTO RESPIMAT4 G1 UD (18:18)
[2025-02-04] MEDS ORDERED: Triamcinolone A15 G3 TOP (18:19)
[2025-02-04 20:06] VITALS: BP 126/52
[2025-02-05 03:34] VITALS: BP 117/57
--- NOTE | 2025-02-05 03:40 | NUR ---
SHIFT SUMMARY ADMITTED FOR HYPONATREMIA. DNR CODE. SHE HAD RECENT RIGHT HIP REPLACED X2. SHE IS CURRENTLY BEDREST/LIFT PATIENT, Q2 TURNS. A&O X3, FORGETFUL. CARDIAC DIET. HOME CPAP IN ROOM @ HS. SHE IS INCONTINENT, PUREWICK IN PLACE. AQUACELL DRESSINGS ON RIGHT HIP APPLIED THIS SHIFT. SHE IS ON ELIQUIS.
[2025-02-05 04:35] LABS: BASOPHILS ABSOLUTE AUTO 0.04 K/mm3 (0.00-0.23); BASOPHILS PERCENT AUTO 1 % (0-2); EOSINOPHILS ABSOLUTE AUTO 0.08 K/mm3 (0.00-0.68); EOSINOPHILS PERCENT AUTO 1 % (0-6); Hematocrit 25.2 % (33.0-51.0); Hemoglobin 8.3 g/dL (11.5-16.0); IMMATURE GRAN ABSOLUTE AUTO 0.09 K/mm3 (0.00-0.10); IMMATURE GRAN PERCENT AUTO 1 % (0-1); LYMPHOCYTES ABSOLUTE AUTO 1.30 K/mm3 (0.84-5.20); LYMPHOCYTES PERCENT AUTO 18 % (21-46); MONOCYTES ABSOLUTE AUTO 1.19 K/mm3 (0.16-1.47); MONOCYTES PERCENT AUTO 16 % (4-13); Mean Corpuscular HGB Conc 32.9 g/dL (31.5-36.5); Mean Corpuscular Volume 99 fL (80-100); NEUTROPHILS ABSOLUTE AUTO 4.73 K/mm3 (1.96-9.15); NEUTROPHILS PERCENT AUTO 64 % (41-73); NRBC ABSOLUTE 0.00 K/mm3 (0.00-0.02); NRBC Auto 0.0 /100 WBC (0.0-0.2); Platelet Count 291 K/mm3 (150-400); RDW Coefficient Variation 21.0 % (11.7-14.2); RDW Standard Deviation 65.1 fL (35.1-46.3)
[2025-02-05 04:51] LABS: Anion Gap 8.0 mmol/L (3-11); Blood Urea Nitrogen 18.0 mg/dL (8-24); CO2, Blood 25.0 mmol/L (21-32); Calcium, Blood 8.3 mg/dL (8.5-10.1); Chloride, Blood 100.0 mmol/L (98-108); Creatinine, Blood 1.02 mg/dL (0.40-1.00); Glucose, Blood 80.0 mg/dL (70-99); Potassium, Blood 3.4 mmol/L (3.5-5.5); Sodium, Blood 130.0 mmol/L (136-145)
[2025-02-05 08:01] VITALS: BP 154/67
[2025-02-05] MEDS ORDERED: Tiotropium Bromide 2.5 MCG/ACT MIST INHAL (10 ACT/4 GM) INH SCH (09:45)
--- NOTE | 2025-02-05 11:43 | NUR ---
Pt. is awake in bed and welcomes my visit. Pt. is pleasnt. Facilitated a life review and considered matters of frank and belief. Listened with interest and emapthy as Pt. shares about her time in [place] and about being closer to her home. Pt. displayed a growing sense of trust. Pryaed with the Pt. Pt. verbalized gratitude for the spiritual care visit and welcomed this sql analyst to return.
[2025-02-05 14:41] VITALS: BP 121/42
--- NOTE | 2025-02-05 16:34 | NUR ---
SHIFT SUMMARY PT AOX4, COOPERATIVE, ABLE TO MAKE NEEDS KNONW. PT HAS BEEN SLEEPING MOST OF SHIFT. TOLERATING MEDICATION. JANET LEMA ACTIVE. DEVULCANIZER HEAD INFORMED THIS RN ABOUT POSSIBLE TRANSFER TO SNF AT SOME POINT. ON ROOM AIR. TOLERATING PO INTAKE. BED IN LOWEST POSITON, CALL LIGHT WITHIN REACH.
[2025-02-05 19:23] VITALS: BP 106/52
--- NOTE | 2025-02-06 04:02 | NUR ---
SHIFT SUMMARY ADMITTED FOR HYPONATREMIA. DNR CODE. RECENT RIGHT HIP REPLACEMENT X2 AND I&D PERFORMED AT [facility]. AQUACELL BANDAGES ON RIGHT HIP REMAIN C/D/I. HOME CPAP @ NIGHT. INCONTINENT, PUREWICK IN PLACE. CARDIAC DIET. 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 A&O X3, FORGETFUL.
[2025-02-06 04:13] VITALS: BP 138/52
[2025-02-06 05:00] LABS: BASOPHILS ABSOLUTE AUTO 0.03 K/mm3 (0.00-0.23); BASOPHILS PERCENT AUTO 0 % (0-2); EOSINOPHILS ABSOLUTE AUTO 0.12 K/mm3 (0.00-0.68); EOSINOPHILS PERCENT AUTO 2 % (0-6); Hematocrit 25.2 % (33.0-51.0); Hemoglobin 7.9 g/dL (11.5-16.0); IMMATURE GRAN ABSOLUTE AUTO 0.06 K/mm3 (0.00-0.10); IMMATURE GRAN PERCENT AUTO 1 % (0-1); LYMPHOCYTES ABSOLUTE AUTO 1.14 K/mm3 (0.84-5.20); LYMPHOCYTES PERCENT AUTO 15 % (21-46); MONOCYTES ABSOLUTE AUTO 1.17 K/mm3 (0.16-1.47); MONOCYTES PERCENT AUTO 16 % (4-13); Mean Corpuscular HGB Conc 31.3 g/dL (31.5-36.5); Mean Corpuscular Volume 100 fL (80-100); NEUTROPHILS ABSOLUTE AUTO 4.92 K/mm3 (1.96-9.15); NEUTROPHILS PERCENT AUTO 66 % (41-73); NRBC ABSOLUTE 0.00 K/mm3 (0.00-0.02); NRBC Auto 0.0 /100 WBC (0.0-0.2); Platelet Count 315 K/mm3 (150-400); RDW Coefficient Variation 20.8 % (11.7-14.2); RDW Standard Deviation 72.5 fL (35.1-46.3)
[2025-02-06 05:10] LABS: Anion Gap 9.0 mmol/L (3-11); Blood Urea Nitrogen 19.0 mg/dL (8-24); CO2, Blood 25.0 mmol/L (21-32); Calcium, Blood 8.2 mg/dL (8.5-10.1); Chloride, Blood 101.0 mmol/L (98-108); Creatinine, Blood 0.92 mg/dL (0.40-1.00); Glucose, Blood 86.0 mg/dL (70-99); Potassium, Blood 3.3 mmol/L (3.5-5.5); Sodium, Blood 132.0 mmol/L (136-145)
[2025-02-06 07:22] VITALS: BP 123/48
[2025-02-06] MEDS ORDERED: Fluticasone 0.05% Nasal Spray SCH (09:00)
[2025-02-06] MEDS ORDERED: Polyethylene Glycol 3350 17 gm PO SCH (09:00)
[2025-02-06] MEDS ORDERED: Folic Acid 1 MG TAB PO SCH (09:00)
--- NOTE | 2025-02-06 14:05 | NUR ---
PATIENTS DAUGHTER AT [facility] AND HAD SOME QUESTIONS ABOUT PLAN OF CARE. PT OK'D TO DISCUSS OPENLY. ANSWERED FAMILY MEMEBERS QUESTIONS/CONCERNS TO THE BEST OF MY ABILITY AND FAMILY MEMBER VERBALIZED UNDERSTANDING. NO NEW QUESTIONS OR CONCERNS.
[2025-02-06 15:32] VITALS: BP 124/47
--- NOTE | 2025-02-06 19:52 | NUR ---
SUMMARY PT A/OX3. BEDREST. PT SAT PT AT EDGE OF BED. PT NONWEIHGT BEARING TO RLE POST HIP SURGERY. CHANGED ROOM TO BE IN LIFT ROOM. WAS IN ROOM 303. ALL BELONGINGS GATHERED AND TAKEN TO NEW ROOM. DAUGHTER UPDATED ON MOVE.
[2025-02-06 19:54] VITALS: BP 129/47
--- NOTE | 2025-02-06 23:04 | NUR ---
PT HAS NO IV MEDS AND NO TELE. T.O. FOR NO IV ACCESS FROM JOSHUA.
[2025-02-07 03:56] VITALS: BP 140/61
--- NOTE | 2025-02-07 04:00 | NUR ---
SHIFT SUMMARY PT SLEPT MOST OF THE NIGHT. NO IV ACCESS ORDERED DUE TO PT NOT HAVING AN IV AND PT HAS NOT IV MEDS. NO ACUTE CHANGES.
[2025-02-07 06:19] LABS: Hematocrit 25.3 % (33.0-51.0); Hemoglobin 8.0 g/dL (11.5-16.0)
[2025-02-07 06:42] LABS: Anion Gap 9.0 mmol/L (3-11); Blood Urea Nitrogen 17.0 mg/dL (8-24); CO2, Blood 24.0 mmol/L (21-32); Calcium, Blood 8.0 mg/dL (8.5-10.1); Chloride, Blood 100.0 mmol/L (98-108); Creatinine, Blood 0.85 mg/dL (0.40-1.00); Glucose, Blood 83.0 mg/dL (70-99); Potassium, Blood 2.9 mmol/L (3.5-5.5); Sodium, Blood 130.0 mmol/L (136-145)
[2025-02-07 07:16] VITALS: BP 146/57
[2025-02-07 15:13] VITALS: BP 130/51
--- NOTE | 2025-02-07 16:40 | NUR ---
PATIENT CONTINUES TO BE NON-WEIGHT BEARING. ACCEPTING OF FREQUENT TURNS. FAXED MED RECORD REQUEST TO TONI GONZALEZ TO DETERMINE WHEN FARNAZ ARE SUPPOSED TO BE REMOVED AND WHEN ORTHO FOLLOW UP IS SUPPOSED TO HAPPEN. ON PATIENT MYCHART IT LOOKS LIKE DR YOUSIF WANTS PATIENT TO FOLLOW UP WITH [facility] THE WEEK OF 02/08/25, FAMILY STATE THEY DO NOT HAVE APPT SCHEDULED. PATIENT IS ABLE TO MAKE NEEDS KNOWN.
[2025-02-07 19:30] VITALS: BP 129/54
--- NOTE | 2025-02-07 20:30 | NUR ---
ASSUMPTION OF CARE: THIS RN ASSUMED CARE OF PATIENT. AWAKE DURING SHIFT CHANGE REPORT. LYING IN BED ON LEFT SIDE. RT @ BEDSIDE: PT-OWNED CPAP ALARMING "SERVICE" NOTIFICATION; RT BROUGHT IN HOUSE CPAP FOR HER TO USE. BREATHING EVEN AND UNLABORED c ROOM AIR. MAINTIANING SPO2 >92% PER CONTINUOUS PULSE OX. BED IN LOWEST POSITION. CALL LIGHT WITHIN REACH. ACUTE NEEDS MET.
[2025-02-08 04:42] VITALS: BP 148/60
[2025-02-08 05:18] LABS: BASOPHILS ABSOLUTE AUTO 0.03 K/mm3 (0.00-0.23); BASOPHILS PERCENT AUTO 1 % (0-2); EOSINOPHILS ABSOLUTE AUTO 0.15 K/mm3 (0.00-0.68); EOSINOPHILS PERCENT AUTO 3 % (0-6); Hematocrit 23.7 % (33.0-51.0); Hemoglobin 7.6 g/dL (11.5-16.0); IMMATURE GRAN ABSOLUTE AUTO 0.02 K/mm3 (0.00-0.10); IMMATURE GRAN PERCENT AUTO 0 % (0-1); LYMPHOCYTES ABSOLUTE AUTO 1.35 K/mm3 (0.84-5.20); LYMPHOCYTES PERCENT AUTO 25 % (21-46); MONOCYTES ABSOLUTE AUTO 0.91 K/mm3 (0.16-1.47); MONOCYTES PERCENT AUTO 17 % (4-13); Mean Corpuscular HGB Conc 32.1 g/dL (31.5-36.5); Mean Corpuscular Volume 100 fL (80-100); NEUTROPHILS ABSOLUTE AUTO 3.04 K/mm3 (1.96-9.15); NEUTROPHILS PERCENT AUTO 55 % (41-73); NRBC ABSOLUTE 0.00 K/mm3 (0.00-0.02); NRBC Auto 0.0 /100 WBC (0.0-0.2); Platelet Count 313 K/mm3 (150-400); RDW Coefficient Variation 19.7 % (11.7-14.2); RDW Standard Deviation 70.2 fL (35.1-46.3)
[2025-02-08 06:01] LABS: Anion Gap 7.0 mmol/L (3-11); Blood Urea Nitrogen 15.0 mg/dL (8-24); CO2, Blood 26.0 mmol/L (21-32); Calcium, Blood 8.2 mg/dL (8.5-10.1); Chloride, Blood 102.0 mmol/L (98-108); Creatinine, Blood 0.75 mg/dL (0.40-1.00); Glucose, Blood 82.0 mg/dL (70-99); Potassium, Blood 3.6 mmol/L (3.5-5.5); Sodium, Blood 131.0 mmol/L (136-145)
--- NOTE | 2025-02-08 06:47 | NUR ---
END OF SHIFT SUMMARY: A&Ox2-3. PLEASANT AND COOPERATIVE WITH CARE. CALLS APPROPRIATELY AND IS ABLE TO ADVOCATE NEEDS EFFECTIVELY. CONTINENT OF BOWEL AND BLADDER c URGE INCONTINENCE. STRICTLY NWB LIMITING MOBILITY. UNMOTIVATED AND REQUIRES ENCOURAGEMENT TO ENGAGE IN ADLs. MEDS WHOLE c FLUIDS. NO C / O PAIN OR DISCOMFORT AND SLEPT MAJORITY OF SHIFT. PERSONAL CPAP SHOWING SERVICE NEEDED MESSAGE; FACILITY CPAP @ BEDSIDE. MAINTAINING SPO2 >92% PER CONTINUOUS PULSE OX WHICH SHE EVENTUALLY REMOVED HERSELF THIS MORNING. BED IN LOWEST POSITION, CALL LIGHT WITHIN REACH, ALL NEEDS MET. REPORT TO ONCOMING NURSE.
[2025-02-08 07:28] VITALS: BP 123/50
--- NOTE | 2025-02-08 11:15 | NUR ---
pt laying in bed with eyes closed wakes easily, a/ox3-4, states she feels a bit confused, daughter states a bit more confuse than yesterday, pleasant and coopertive with care, follows commands well, lungs are clear in upper tabor, dim in bases, resp even and unlabored, no cough noted, on r/a, cpap at hs, hrr, distant sounds, no edema noted, ppp+2, cap refill<3 sec, vs stable, afebrile, has scab to rcw, daughter states from permacath that she pulled out, and picks at things, btx4, abd flat soft nontender, briefs in place for incont, skin has heel protectors in place, maew, is nonweightbearing, hakeem, call light in reach.
[2025-02-08 15:52] VITALS: BP 118/54
--- NOTE | 2025-02-08 18:13 | NUR ---
pt resting in bed, daughter in to see her earlier today, no acute changes this shift. dressing was changed to right hip, call light in reach.
[2025-02-08 19:32] VITALS: BP 115/44
--- NOTE | 2025-02-08 21:29 | NUR ---
CALL FROM DAUGHTER, COOPER: PT ASKED HER DAUGHTER TO COME UP FROM [facility] TO ADJUST CPAP MACHINE. CALL TO RT.
[2025-02-09 04:12] VITALS: BP 121/51
[2025-02-09 05:33] LABS: BASOPHILS ABSOLUTE AUTO 0.03 K/mm3 (0.00-0.23); BASOPHILS PERCENT AUTO 1 % (0-2); EOSINOPHILS ABSOLUTE AUTO 0.17 K/mm3 (0.00-0.68); EOSINOPHILS PERCENT AUTO 3 % (0-6); Hematocrit 24.2 % (33.0-51.0); Hemoglobin 7.6 g/dL (11.5-16.0); IMMATURE GRAN ABSOLUTE AUTO 0.02 K/mm3 (0.00-0.10); IMMATURE GRAN PERCENT AUTO 0 % (0-1); LYMPHOCYTES ABSOLUTE AUTO 1.16 K/mm3 (0.84-5.20); LYMPHOCYTES PERCENT AUTO 24 % (21-46); MONOCYTES ABSOLUTE AUTO 0.84 K/mm3 (0.16-1.47); MONOCYTES PERCENT AUTO 17 % (4-13); Mean Corpuscular HGB Conc 31.4 g/dL (31.5-36.5); Mean Corpuscular Volume 101 fL (80-100); NEUTROPHILS ABSOLUTE AUTO 2.71 K/mm3 (1.96-9.15); NEUTROPHILS PERCENT AUTO 55 % (41-73); NRBC ABSOLUTE 0.00 K/mm3 (0.00-0.02); NRBC Auto 0.0 /100 WBC (0.0-0.2); Platelet Count 310 K/mm3 (150-400); RDW Coefficient Variation 19.3 % (11.7-14.2); RDW Standard Deviation 68.7 fL (35.1-46.3)
--- NOTE | 2025-02-09 05:43 | NUR ---
END OF SHIFT SUMMARY: A&Ox3-4. PLEASANT. UNMOTIVATED TO PARTICIPATE IN ADLs. CALLS APPROPRIATELY AND IS ABLE TO ADVOCATE NEEDS EFFECTIVELY. INCONTINENT x2. BEDREST c LIFT D/T RLE NWB. NO IV ACCESS. MAINTAINING SPO2 >92% ON RA PER CONTINUOUS PULSE OX. REFUSED CPAP D/T NOT LIKING HOW FACILITY MASK FITS. RT NOTIFIED. PHONE CALL c DAUGHTER, COOPER. CONCERNED PT WILL NOT QUALIFY FOR SNF DUE TO NOT WANTING TO PARTICIPATE IN THERAPIES. DISCUSSION REGARDING PALLIATIVE CARE VS HOSPICE CARE. AGREED TO PALLIATIVE CONSULT FOR GOALS OF CARE FOR ALTERNATIVE PLAN IF PT DOES NOT GET ACCEPTED TO SNF. BED IN LOWEST POSITION, CALL LIGHT WITHIN REACH, ALL NEEDS MET. REPORT TO ONCOMING NURSE.
[2025-02-09 06:04] LABS: Anion Gap 9.0 mmol/L (3-11); Blood Urea Nitrogen 20.0 mg/dL (8-24); CO2, Blood 26.0 mmol/L (21-32); Calcium, Blood 8.4 mg/dL (8.5-10.1); Chloride, Blood 102.0 mmol/L (98-108); Creatinine, Blood 0.71 mg/dL (0.40-1.00); Glucose, Blood 87.0 mg/dL (70-99); Potassium, Blood 3.5 mmol/L (3.5-5.5); Sodium, Blood 133.0 mmol/L (136-145)
[2025-02-09 07:57] VITALS: BP 131/48
--- NOTE | 2025-02-09 09:30 | NUR ---
CONSULT REQUESTED BY PHYSICAL THERAPY D/T PT DECLINING TO PARTICIPATE IN CARES. MET WITH PT. SHE IS A/O X3, INTERMITTENT CONFUSION (REPEATING STATIEMENTS). SUSPECT WITH PT'S EXTENSIVE HOSPITALALIZATIONS SINCE THE BEGINNING OF DECEMBER. ANTWAN DISPAYING SIGNS OF DEPRESSION WELL. PT SELF REPORTS FEELING DOWN AND DEPRESSED. THERAPUTIC LISTENING PROVIDED. WHEN REVIEWED GOC WITH PT SHE STATED, "I JUST WANT TO LIVE PEACEFULLY WITH OUT ANY PROBLEMS". WHEN ASKED IF THAT WAS REALISTIC SHE RESPONDED WITH "PROBABLY NOT". SECOND GOAL IS, "GET AROUND AND BE IN MY CHAIR." THIS PC RN ADVISED PT THAT TO REACH HER GOALS SHE HAS TO PATICIPATE IN THERAPY EVEN IF SHE IS TIRED OR DOESN'T FEEL WELL. PT REPORTS SHE WILL WORK WITH THERAPY TOMORROW 02/09/25. CANDIDO GAMBOA IS ENCOURAGING OF PT AND OFFERS STRONG WORDS OF ENCOURAGEMENT. PER PT REQUEST, PT'S SON LIEN UPDATED RE: CONVERSATION WHEN HE ARRIVED. PLAN: GOALS OF CARE MEETING SET FOR 02/11/25 @ 1100 AFTER PT IS SEEN BY THERAPY. PROVIDER, CM AND PRIMARY RN UPDATED. CANDIDO GAMBOA AT BEDSIDE.
--- NOTE | 2025-02-09 12:15 | NUR ---
Spiritual Care Visit. Pt. is awake in bed when she welcomes my visit. Daughter is present at bedside. Daughter verbalizes concern about the Pts. lack of motivation to do physical therapy. Listen with empathy and a calming presence. Pt. displays evidence of being weak, and looked this textiles and clothing teacher in the eyes as she said so. Pt. is a woman of frank. Considered matters of frank and belief. Prayed for the Pt. Pt. verbalized gratitude for the spiritual care visit.
[2025-02-09 16:27] VITALS: BP 127/56
--- NOTE | 2025-02-09 16:29 | NUR ---
assumed care A/O VERY PLEASENT PT WITH A FLAT AFFECT, CURRENTLY NOT HAVING ANY PAIN STATES SHE JUST WANTS TO SLEEP, PT WAS REPOSITIONED AND WAS ABLE TO FEED SELF BREAKFAST. RIGHT HIP BANDAGE INTACT WITH SOME BLOODY DRAINAGE. PT HAS CALL LIGHT WITHIN REACH AND IS ABLE TO MAKE NEEDS KNOWN. PT STATES SHE WOULD LIKE TO JUST SLEEP BUT CANT.
--- NOTE | 2025-02-09 16:35 | NUR ---
NEEDING TO ENC PT TO REPOSITION, PT FAVORS LEFT SIDE. PHYSICAL THERAPY INTO WORK WITH PT BUT PT REFUSED. PT UNDERSTANDS THAT SHE NEEDS TO START MOVING BUT JUST IS NOT WILL TOO. FAMILY AWARE, PALLATIVE CARE TO SEE PT AND DISCUSS PLAN OF CARE. PT STATED SHE WOULD TRY TO GET UP WITH PHYSICAL THERAPY TOMMOROW.
--- NOTE | 2025-02-09 16:39 | NUR ---
PALLIATIVE CARE SPOKE WITH FAMILY AT BEDSIDE AND EMPHASIZED THE IMPORTANCE OF FIGURING OUT THE PLAN OF CARE FOR THE PT. ADDRESSING THE NEEDED FOR CONT CARE POSSIBLY AT A SNF OR AT HOME. PT FAMILY WILL MEET TOMORROW AND DISCUSS PT CARE FROM HERE ON OUT.
[2025-02-09 19:58] VITALS: BP 130/43
[2025-02-10 05:03] VITALS: BP 124/55
[2025-02-10 05:35] LABS: BASOPHILS ABSOLUTE AUTO 0.05 K/mm3 (0.00-0.23); BASOPHILS PERCENT AUTO 1 % (0-2); EOSINOPHILS ABSOLUTE AUTO 0.17 K/mm3 (0.00-0.68); EOSINOPHILS PERCENT AUTO 3 % (0-6); Hematocrit 25.4 % (33.0-51.0); Hemoglobin 8.2 g/dL (11.5-16.0); IMMATURE GRAN ABSOLUTE AUTO 0.01 K/mm3 (0.00-0.10); IMMATURE GRAN PERCENT AUTO 0 % (0-1); LYMPHOCYTES ABSOLUTE AUTO 1.23 K/mm3 (0.84-5.20); LYMPHOCYTES PERCENT AUTO 19 % (21-46); MONOCYTES ABSOLUTE AUTO 0.96 K/mm3 (0.16-1.47); MONOCYTES PERCENT AUTO 15 % (4-13); Mean Corpuscular HGB Conc 32.3 g/dL (31.5-36.5); Mean Corpuscular Volume 100 fL (80-100); NEUTROPHILS ABSOLUTE AUTO 4.06 K/mm3 (1.96-9.15); NEUTROPHILS PERCENT AUTO 63 % (41-73); NRBC ABSOLUTE 0.00 K/mm3 (0.00-0.02); NRBC Auto 0.0 /100 WBC (0.0-0.2); Platelet Count 337 K/mm3 (150-400); RDW Coefficient Variation 19.0 % (11.7-14.2); RDW Standard Deviation 66.9 fL (35.1-46.3)
[2025-02-10 06:05] LABS: Anion Gap 8.0 mmol/L (3-11); Blood Urea Nitrogen 16.0 mg/dL (8-24); CO2, Blood 27.0 mmol/L (21-32); Calcium, Blood 8.7 mg/dL (8.5-10.1); Chloride, Blood 100.0 mmol/L (98-108); Creatinine, Blood 0.75 mg/dL (0.40-1.00); Glucose, Blood 87.0 mg/dL (70-99); Potassium, Blood 3.6 mmol/L (3.5-5.5); Sodium, Blood 131.0 mmol/L (136-145)
[2025-02-10 07:54] VITALS: BP 135/64
--- NOTE | 2025-02-10 07:55 | NUR ---
SHIFT SUMMARY AT START OF SHIFT, PT LYING IN BED WATCHING TV. VERBALIZED UNDERSTANDING OF NEED FOR PHYSICAL THERAPY. PT SLEEPING SOUNDLY THIS EVENING. PER INDEPENDENT INSURANCE ADJUSTER, PT REFUSED TURNS/REPOSITIONING WELL BRIEF CHANGES. THIS AM, PT AGREED TO BRIEF CHANGE, AND HAD BLANCHABLE RASH IN ORALIA AREA. BABY POWDER APPLIED AFTER PT CLEANED AND REDRESSED. PT COMPLAINED OF HEADACHE. MEDICATED PER EMAR. PT RESTING COMFORTABLY AT THIS TIME.
--- NOTE | 2025-02-10 10:20 | NUR ---
GOALS OF CARE VISIT: PHYSICAL THERAPY IN ROOM ATTEMPTING TO WORK WITH PT. PT DENIES THE ABILITY TO COMPLETE THERAPY SESSION AND DOES NOT WANT TO CONTINUE TODAY. SHE ASKED TO DELAY THERAPY TO TOMORROW. GOALS OF CARE CONVERSATION WITH PT AND DTRCOOPER IN ROOM POST PHYSICAL THERAPY. PT DOES NOT WANT TO CONTINUE WITH PHYICAL THERAPY. HER MOBILITY CONTINUES TO DECLINE. SHE CAN SIT UP ASSISTED IN BED. INCONTINENT. DECREASED APPETITE. REVIEWED CURRENT CARE AND THE POSSIBILITY OF HOSPICE WITH DTR'S BORIS AND COOPER. NEW POLST FILLED OUT, PENDING PROVIDER SIGNATURE. FORM PLACED AT ROOM. PLAN: CONTINUE CARE WHILE IN THE HOSPITAL. PROVIDER TO REVIEW CHART AND POSSIBLY PLACE ORDER FOR MGMT OF DEPRESSION. D/C HOME WITH [facility], HOSPICE PHYSICAL THERAPY TO MAINTAIN REMAINING FUNCTION S/P RIGHT HIP REVISION. FAMILY TO WORK ON [employer] MEDICAID. UPDATES PROVIDED TO PRIMARY RN, CM, ENGINEERING AND OPERATIONS DIRECTOR, PROVIDER AND PHYSICAL THERAPY.
[2025-02-10 16:02] VITALS: BP 119/55
--- NOTE | 2025-02-10 17:07 | NUR ---
EXTENSIVE DRAINAGE FROM FROM R HIP REVISION S/P DISPLACEMENT. DRESSING CHANGE X2 THIS SHIFT NOTIFIED, PER TIP REPORT, HE WILL CALL DR. AGUILAR FOR CONSULT
--- NOTE | 2025-02-10 17:52 | NUR ---
Spiritual Care Visit. Pt. is awake in bed and welcomes my visit. Pts. daughters are present. Facilitated an update of plans and prognosis. Pts. daughters verbalize encouragement to the Pt. to strengthen her resolve to get better. Pt. displays evidence of exhuastion and awareness of what they want her to physically attempt to do. Facilitated some family life story, Prayed with the Pt. and family. Pt. verbalized gratitude for the spiritual care visit and welcomed this service provider to return.
--- NOTE | 2025-02-10 17:54 | NUR ---
PT IS A&Ox4 WITH SOME CONFUSION. PLEASANT AND COOPERATIVE WITH CARE TODAY. WOUND DRESSING ON RIGHT HIP CHANGED 2X TODAY DUE TO EXCESSIVE DRAINAGE. MD AWARE, CONSULT PLACED. PLAN IS TO D/C PATIENT HOME ON [facility]. PT ATTEMPTED TO WORK WITH PATIENT TODAY, PATIENT WAS UNABLE TO STAND.
[2025-02-10 19:58] VITALS: BP 148/66
[2025-02-11 04:12] VITALS: BP 125/58
--- NOTE | 2025-02-11 04:35 | NUR ---
RIGHT HIP DRESSING CHANGE AND HOSPITALIST CONTACT. AT APROX 0330; DRESSING TO RIGHT HIP CHANGED. AQUACEL TO SMALLER INCISION. LARGER INCISION WAS DRESSED WITH GAUZE AND MEDIPORT TAPE. THIS DRESSING WAS SATURATED WITH SEROSANGUINEOUS EXUDATE. NO ODOR NOTED. INCISION FARNAZ INTACT BUT SKIN IS REDDENED AND SKIN IN THE STAPLE LINE IS CHEN INCOLOR. CONSULT HAS BEEN CALLED FOR CONCERNS FOR EXCESS DRAINAGE. PT PAINFUL AND REQUESTING PAIN INTERVENTION. CALL HOSPITALIST. ORDER FOR 5MG OXYCODONE NOW. DR DAWN ATTENDING TO ADDRESS PAIN MANAGEMENT FURTHER.
[2025-02-11 06:17] LABS: BASOPHILS ABSOLUTE AUTO 0.06 K/mm3 (0.00-0.23); BASOPHILS PERCENT AUTO 1 % (0-2); EOSINOPHILS ABSOLUTE AUTO 0.14 K/mm3 (0.00-0.68); EOSINOPHILS PERCENT AUTO 2 % (0-6); Hematocrit 26.5 % (33.0-51.0); Hemoglobin 8.3 g/dL (11.5-16.0); IMMATURE GRAN ABSOLUTE AUTO 0.01 K/mm3 (0.00-0.10); IMMATURE GRAN PERCENT AUTO 0 % (0-1); LYMPHOCYTES ABSOLUTE AUTO 1.12 K/mm3 (0.84-5.20); LYMPHOCYTES PERCENT AUTO 19 % (21-46); MONOCYTES ABSOLUTE AUTO 0.89 K/mm3 (0.16-1.47); MONOCYTES PERCENT AUTO 15 % (4-13); Mean Corpuscular HGB Conc 31.3 g/dL (31.5-36.5); Mean Corpuscular Volume 100 fL (80-100); NEUTROPHILS ABSOLUTE AUTO 3.69 K/mm3 (1.96-9.15); NEUTROPHILS PERCENT AUTO 62 % (41-73); NRBC ABSOLUTE 0.00 K/mm3 (0.00-0.02); NRBC Auto 0.0 /100 WBC (0.0-0.2); Platelet Count 367 K/mm3 (150-400); RDW Coefficient Variation 18.4 % (11.7-14.2); RDW Standard Deviation 65.6 fL (35.1-46.3)
[2025-02-11 06:41] LABS: Anion Gap 8.0 mmol/L (3-11); Blood Urea Nitrogen 17.0 mg/dL (8-24); CO2, Blood 27.0 mmol/L (21-32); Calcium, Blood 9.0 mg/dL (8.5-10.1); Chloride, Blood 101.0 mmol/L (98-108); Creatinine, Blood 0.72 mg/dL (0.40-1.00); Glucose, Blood 84.0 mg/dL (70-99); Potassium, Blood 3.6 mmol/L (3.5-5.5); Sodium, Blood 132.0 mmol/L (136-145)
[2025-02-11 07:57] VITALS: BP 128/56
--- NOTE | 2025-02-11 11:34 | NUR ---
Spiritual Care Visit. Pt. is awake and welcomes my visit. Daughters are at bedside. Nurse is present administering oral meds. Facilitate an update. Pt. verbalized that she was willing to attempt some physical movement today, and that the plan is to get her up to a chair. Pastoral encouragement is given. Pt. verbalized gratitude for the spiritual care visit and welcomed this pet care worker to return.
--- NOTE | 2025-02-11 11:56 | NUR ---
POLST HAD BEEN SIGNED BY PROVIDER. COPY SENT TO REGISTRY, SENT TO MEDICAL RECORDS, ORIG. PLACED IN CHART WITH ONE COPY
[2025-02-11 15:50] VITALS: BP 128/57
--- NOTE | 2025-02-11 18:48 | NUR ---
NO ACUTE CHANGES THIS SHIFT. PT HAS BEEN COOPERATIVE AND PLEASANT. PT SAT IN RECLINER VIA LIFT AND TOLORATED WELL. FAMILY AT BEDSIDE FOR THIS SHIFT. INCONT OF URINE AND BOWEL. 1 LOOSE BM THIS MORNING. TREATED FOR PAIN PRIOR TO LIFT AND REPOSITION. D/C PENDING ORTHO CONSULT
[2025-02-11 20:22] VITALS: BP 111/46
[2025-02-12 05:14] VITALS: BP 127/52
[2025-02-12 05:52] LABS: BASOPHILS ABSOLUTE AUTO 0.04 K/mm3 (0.00-0.23); BASOPHILS PERCENT AUTO 1 % (0-2); EOSINOPHILS ABSOLUTE AUTO 0.17 K/mm3 (0.00-0.68); EOSINOPHILS PERCENT AUTO 4 % (0-6); Hematocrit 25.3 % (33.0-51.0); Hemoglobin 7.9 g/dL (11.5-16.0); IMMATURE GRAN ABSOLUTE AUTO 0.01 K/mm3 (0.00-0.10); IMMATURE GRAN PERCENT AUTO 0 % (0-1); LYMPHOCYTES ABSOLUTE AUTO 1.07 K/mm3 (0.84-5.20); LYMPHOCYTES PERCENT AUTO 23 % (21-46); MONOCYTES ABSOLUTE AUTO 0.69 K/mm3 (0.16-1.47); MONOCYTES PERCENT AUTO 15 % (4-13); Mean Corpuscular HGB Conc 31.2 g/dL (31.5-36.5); Mean Corpuscular Volume 102 fL (80-100); NEUTROPHILS ABSOLUTE AUTO 2.73 K/mm3 (1.96-9.15); NEUTROPHILS PERCENT AUTO 58 % (41-73); NRBC ABSOLUTE 0.00 K/mm3 (0.00-0.02); NRBC Auto 0.0 /100 WBC (0.0-0.2); Platelet Count 348 K/mm3 (150-400); RDW Coefficient Variation 18.5 % (11.7-14.2); RDW Standard Deviation 67.3 fL (35.1-46.3)
[2025-02-12 06:17] LABS: Alanine Aminotransfer (ALT/SGP 7.0 U/L (12-78); Albumin, Blood 2.2 g/dL (3.4-5.0); Albumin/Globulin Ratio 0.6 (0.8-1.8); Anion Gap 8.0 mmol/L (3-11); Aspartate Aminotrans (AST/SGOT 23.0 U/L (12-37); Bilirubin, Total 0.4 mg/dL (0.1-1.0); Blood Urea Nitrogen 17.0 mg/dL (8-24); CO2, Blood 26.0 mmol/L (21-32); Calcium, Blood 8.7 mg/dL (8.5-10.1); Chloride, Blood 101.0 mmol/L (98-108); Creatinine, Blood 0.71 mg/dL (0.40-1.00); Globulin, Blood 3.5 g/dL (2.2-4.0); Glucose, Blood 78.0 mg/dL (70-99); Potassium, Blood 4.0 mmol/L (3.5-5.5); Sodium, Blood 131.0 mmol/L (136-145); Total Protein, Blood 5.7 g/dL (6.4-8.2)
[2025-02-12 07:33] VITALS: BP 122/52
--- NOTE | 2025-02-12 07:44 | NUR ---
CONSULT NOTIFICATION NOTE: CALLED DR. AGUILAR AT 0744 REGARDING CONSULT WAS PLACED ON 02/10/25. THIS RN SPOKE TO DR. AGUILAR, PER DR. AGUILAR HE IS OUT OF STATE AT THIS TIME, BUT HE REACH OUT TO DR. OSBORNE YESTERDAY 02/11/25 TO SEE THE PATIENT. NOTIFIED DR. OLGA LIDIA jean baptiste THIS UPDATE.
--- NOTE | 2025-02-12 07:52 | NUR ---
AM NOTE: CALLED ANSWERING SERVICE FOR DR. OSBORNE (ORTHO), SPOKE TO ANSWERING SERVICES AT 0750.
--- NOTE | 2025-02-12 12:29 | NUR ---
NOTE: CALLED DR. OSBORNE (ORTHO) OFFICE AND SPOKE TO SIMRAN AT 1224, TO CHECK IF DR. OSBORNE ABLE TO SEE THE PATIENT TODAY. PER SIMRAN SHE WILL SENT A MESSAGE TO DR. OSBORNE.
[2025-02-12 16:17] VITALS: BP 115/44
[2025-02-12 16:18] VITALS: BP 121/48
--- NOTE | 2025-02-12 17:22 | NUR ---
SHIFT SUMMARY: PATIENT A/OX3, INTERMITTENT CONFUSION, BUT REDIRECTABLE. PATIENT MEDICATED FOR R HIP PAIN PER EMAR c GOOD EFFECT. PATIENT DENIES CP/PRESSURE, SOB, N/V AND DIZZINESS. DRESSING CHANGED TO R HIP PER ORDER. PATIENT STILL AWAITING FOR DR. OSBORNE (ORTHO) TO ASSESS R HIP SURGICAL SITE. DR. DUGGAN IS AWARE. PATIENT RESTING IN BED T/O SHIFT. PATIENT HAS FAIR APPETITE, INCONTINENT OF BLADDER, ATTENDS IN PLACED AND CHANGED PRN, Q2 TURN. PATIENT FAMILY AT BEDSIDE. PATIENT HAS NO PIV ACCESS PER ORDER. VITAL SIGNS REVIEWED. CALL LIGHT IN REACH.
[2025-02-12 21:42] VITALS: BP 117/41
--- NOTE | 2025-02-13 03:29 | NUR ---
SHIFT SUMMARY RIGHT HIP DRESSING C/D/I. PT LOCALIZES PAIN. RIGHT LE ELEVATED WITH PILLOWS. PT REFUSING REPOSITIONING AND ATTEND CHANGE, INCONTINENT OF BOWEL AND URINE. PURWICK IN PLACE, DRAINING YELLOW COLOR URINE. PT DENIES A NEED FOR PAIN MEDS, LOCALIZES PAIN TO RIGHT HIP. O2 MID 90'S ON CONTINUOUS PULSE OX. PT DENIES SOB, N/V, AND DENIES CP DURING THIS SHIFT. UTILIZING CPAP AT NIGHT. BED AT THE LOWEST POSITION, CALL LIGHT W/I REACH. PT IS ABLE TO MAKE HER NEEDS KNOWN, A/O X3, INTERMITTENT CONFUSION, ABLE TO REORIENT.
[2025-02-13 05:17] VITALS: BP 124/50
[2025-02-13 05:33] LABS: BASOPHILS ABSOLUTE AUTO 0.06 K/mm3 (0.00-0.23); BASOPHILS PERCENT AUTO 1 % (0-2); EOSINOPHILS ABSOLUTE AUTO 0.21 K/mm3 (0.00-0.68); EOSINOPHILS PERCENT AUTO 4 % (0-6); Hematocrit 26.0 % (33.0-51.0); Hemoglobin 8.2 g/dL (11.5-16.0); IMMATURE GRAN ABSOLUTE AUTO 0.00 K/mm3 (0.00-0.10); IMMATURE GRAN PERCENT AUTO 0 % (0-1); LYMPHOCYTES ABSOLUTE AUTO 1.26 K/mm3 (0.84-5.20); LYMPHOCYTES PERCENT AUTO 25 % (21-46); MONOCYTES ABSOLUTE AUTO 0.75 K/mm3 (0.16-1.47); MONOCYTES PERCENT AUTO 15 % (4-13); Mean Corpuscular HGB Conc 31.5 g/dL (31.5-36.5); Mean Corpuscular Volume 101 fL (80-100); NEUTROPHILS ABSOLUTE AUTO 2.78 K/mm3 (1.96-9.15); NEUTROPHILS PERCENT AUTO 55 % (41-73); NRBC ABSOLUTE 0.00 K/mm3 (0.00-0.02); NRBC Auto 0.0 /100 WBC (0.0-0.2); Platelet Count 346 K/mm3 (150-400); RDW Coefficient Variation 17.8 % (11.7-14.2); RDW Standard Deviation 65.1 fL (35.1-46.3)
[2025-02-13 06:06] LABS: Anion Gap 6.0 mmol/L (3-11); Blood Urea Nitrogen 16.0 mg/dL (8-24); CO2, Blood 28.0 mmol/L (21-32); Calcium, Blood 8.6 mg/dL (8.5-10.1); Chloride, Blood 101.0 mmol/L (98-108); Creatinine, Blood 0.73 mg/dL (0.40-1.00); Glucose, Blood 81.0 mg/dL (70-99); Potassium, Blood 4.1 mmol/L (3.5-5.5); Sodium, Blood 131.0 mmol/L (136-145)
[2025-02-13 07:22] VITALS: BP 141/55
[2025-02-13] MEDS ORDERED: SODCHL1 PO (15:28)
[2025-02-13] MEDS ORDERED: BUPR150ER PO (15:28)
[2025-02-13] MEDS ORDERED: OXAYDO5 M2 PO (15:29)
[2025-02-13 16:08] VITALS: BP 143/53
--- NOTE | 2025-02-13 17:21 | NUR ---
SHIFT SUMMARY: PATIENT MEDICATED FOR R HIP/KNEE PAIN PER EMAR c GOOD EFFECT. PATIENT SAT UP IN RECLINER CHAIR FOR ABOUT [address] OSBORNE CAME IN TODAY FOR CONSULT TO RE-EVALUATE R HIP INCISION SITE. PER DR. OSBORNE INCISION SITE LOOK GOOD, KEEP AND DON'T CHANGE DRESSING TO SITE. PATIENT HAS MOD APPETITE, PUREWICK/ATTENDS IN PLACED FOR INCONTINENT VOID. VITAL SIGNS REVIEWED. PATIENT HAS NO PIV ACCESS PER ORDER. PATIENT DAUGHTER'S VISITED TODAY. BED ALARM ON FOR SAFETY. CALL LIGHT IN REACH.
[2025-02-13 19:42] VITALS: BP 113/41
[2025-02-13 20:42] VITALS: BP 111/42
--- NOTE | 2025-02-14 03:06 | NUR ---
SHIFT SUMMARY NO ACUTE EVENTS DURING THIS SHIFT. PT IS A/O X3, INTERMITTENTLY CONFUSED. REORIENTED. PUREWICK DRAINING YELLOW COLOR URINE, ATTENDS IN PLACE. RIGHT HIP DRESSING C/D/I. PT DENIES PAIN. CPAP AT NIGHT IN USE. ON RA, CONTINUOUS PULSE OX SAT'S>94%. PT DENIES SOB. PLAN IS FOR THE DR. TERESA TO REMOVE THE FARNAZ TODAY AND POSSIBLY PT TO TRANSFER TO [facility]. BED AT THE LOWEST POSITION, CALL LIGHT W/I REACH. PT IS ABLE TO MAKE HER NEEDS KNOWN AND IS COOPERATIVE WITH CARE.
[2025-02-14 03:33] VITALS: BP 119/46
[2025-02-14 07:33] VITALS: BP 127/54
--- NOTE | 2025-02-14 09:00 | NUR ---
pt resting in bed, awake, a/ox3-4, occ confused, pleasant and cooperative with care, follows commands well, denies pain, lungs are clear in upper tabor, a bit dim in bases, resp even and unlabored, no cough noted, on r/a, hrr, trace edema noted to b/l le, ppp+1, cap refill<3 sec, vs stable, afebrile, btx4, abd flat soft nontender, voids via purwick and briefs, skin has surgical melvin to right hip, dpfe = strong, machine heel builder = strong, hakeem, will be going to snf today and uvnh, call light in reach.
--- NOTE | 2025-02-14 14:45 | NUR ---
Pt is discharged to [facility], report was called, spoke with Mandie, own belongings sent with daughter and pt, left via reclining wheelchair, with transport in attendence.
== END 2025-02-14 15:10 | DRG 560 ==
LOC: MEDS 15:58
PROVIDERS: Internal Medicine; ADMIT Family Medicine
PROC: 5A09357 Assistance with Respiratory Ventilation, Less than 24 Consecutive Hours, Continuous Positive Airway Pressure (ICD-10-PCS; principal; 2025-02-08)
DX: T84.020A Dislocation of internal right hip prosthesis, initial encounter (principal); E87.1 Hypo-osmolality and hyponatremia; G47.00 Insomnia, unspecified; I10 Essential (primary) hypertension; J44.9 Chronic obstructive pulmonary disease, unspecified; L40.9 Psoriasis, unspecified; Z66 Do not resuscitate; Z51.5 Encounter for palliative care; E87.6 Hypokalemia; D64.9 Anemia, unspecified; Z96.641 Presence of right artificial hip joint; Z90.49 Acquired absence of other specified parts of digestive tract; Z90.89 Acquired absence of other organs; Z98.51 Tubal ligation status; Z98.890 Other specified postprocedural states; Z88.8 Allergy status to other drugs, medicaments and biological substances; Z79.01 Long term (current) use of anticoagulants; Z79.51 Long term (current) use of inhaled steroids; Z79.890 Hormone replacement therapy; Z79.899 Other long term (current) drug therapy; Y79.2 Prosthetic and other implants, materials and accessory orthopedic devices associated with adverse incidents
CPT/HCPCS: 36415; 72170; 80048; 80053; 85014; 85018; 85025; 94640; 94660; 94664; 94760; 94762; 97110; 97161; 97530; A9270

== ENCOUNTER 2025-02-15 16:57 | Inpatient (IN) | payer OTHER ==
[~2025-02-15] VITALS: Ht 162.6 cm; Wt 90.7 kg
[~2025-02-15 16:57] MED LIST changes: +ALMACONE SUSPE355 ML PO; +AMLO5 PO; +Acetaminophen325 M1 PO; +BENMENLOZ PO; +BENZ100A PO; +BISA10S PR; +BUPR150ER PO; +Calcium Carbon500 MG PO; +ENEMEEZ PR; +FOLI1 PO; +Flonase 0.05% N16 GM; +MIRALAX17 GM PO; +NASAL SPRAY88 ML; +OMEP20ER PO; +ONDA4ODT MM; +OXAYDO5 M2 PO; +Q-Tussin100 MG/5 M PO; +SENNA LAXATIVE8.6 MG PO; +SODCHL1 PO; +STIOLTO RESPIMAT4 G1 UD; +TAMS.4ER PO; +Triamcinolone A15 G3 TOP
[2025-02-15 17:57] LABS: BASOPHILS ABSOLUTE AUTO 0.04 K/mm3 (0.00-0.23); BASOPHILS PERCENT AUTO 1 % (0-2); EOSINOPHILS ABSOLUTE AUTO 0.19 K/mm3 (0.00-0.68); EOSINOPHILS PERCENT AUTO 3 % (0-6); Hematocrit 24.8 % (33.0-51.0); Hemoglobin 7.9 g/dL (11.5-16.0); IMMATURE GRAN ABSOLUTE AUTO 0.01 K/mm3 (0.00-0.10); IMMATURE GRAN PERCENT AUTO 0 % (0-1); LYMPHOCYTES ABSOLUTE AUTO 1.17 K/mm3 (0.84-5.20); LYMPHOCYTES PERCENT AUTO 20 % (21-46); MONOCYTES ABSOLUTE AUTO 0.81 K/mm3 (0.16-1.47); MONOCYTES PERCENT AUTO 14 % (4-13); Mean Corpuscular HGB Conc 31.9 g/dL (31.5-36.5); Mean Corpuscular Volume 99 fL (80-100); NEUTROPHILS ABSOLUTE AUTO 3.53 K/mm3 (1.96-9.15); NEUTROPHILS PERCENT AUTO 61 % (41-73); NRBC ABSOLUTE 0.00 K/mm3 (0.00-0.02); NRBC Auto 0.0 /100 WBC (0.0-0.2); Platelet Count 328 K/mm3 (150-400); RDW Coefficient Variation 17.2 % (11.7-14.2); RDW Standard Deviation 61.4 fL (35.1-46.3)
[2025-02-15 18:17] LABS: Anion Gap 7.0 mmol/L (3-11); Blood Urea Nitrogen 16.0 mg/dL (8-24); CO2, Blood 25.0 mmol/L (21-32); Calcium, Blood 8.7 mg/dL (8.5-10.1); Chloride, Blood 102.0 mmol/L (98-108); Creatinine, Blood 0.66 mg/dL (0.40-1.00); Glucose, Blood 89.0 mg/dL (70-99); Potassium, Blood 3.7 mmol/L (3.5-5.5); Sodium, Blood 130.0 mmol/L (136-145)
[2025-02-15] MEDS ORDERED: Ondansetron HCl 2 MG / ML 2ML Vial IV PRN (20:00)
[2025-02-15] MEDS ORDERED: Albuterol 2.5 MG/3 ML VIAL INH PRN (20:00)
[2025-02-15] MEDS ORDERED: NS 1,000 ML IV SCH (23:30)
[2025-02-15 23:47] VITALS: BP 135/57
[2025-02-16] VITALS (13 sets, daily range): BP systolic 109–155; BP diastolic 53–76
--- NOTE | 2025-02-16 05:18 | NUR ---
SHIFT SUMMARY 84 YR F ADMITTED ON 02/15/25. FULL CODE. NO ACUTE CHANGES THIS SHIFT. PT ARRIVED TO MEDICAL FLOOR AT APPROX 2330 AND FELL ASLEEP SHORTLY THERE AFTER AND SLEPT THROUGH THE NIGHT. SHE IS INCONTINENT OF BOWEL AND BLADDER AND A PUREWIK WAS PLACED TO PREVENT SKIN BREAKDOWN. PLAN IS FOR SURGICAL CONSULT THIS A.M. PT HAS BEEN NPO SINCE MIDNIGHT. NS INFUSING @ 75 ML/HR. BED IS IN LOW POSITION AND CALL LIGHT IN REACH.
[2025-02-16] MEDS ORDERED: CeFAZolin Sodium 2,000 MG in NS 100 ML IV SCH (10:25)
[2025-02-16] MEDS ORDERED: Arginine/Glutamine/Calcium Hmb 1 Packet PO SCH (11:40)
--- NOTE | 2025-02-16 14:07 | NUR ---
PATIENT TRANSFERED TO DAY SURGERY VIA BED, ACCOMPANIED BY DAUGHTERS, COOPER AND ARTURO. DR AGUILAR HERE AT BEDSIDE SPEAKING TO PATIENT ABOUT SURGERY AND TREATMENT PLAN. DR WHELAN TO DO PLANNED SURGERY TODAY.
--- NOTE | 2025-02-16 14:19 | NUR ---
CARE RESUMED BY CHARLIE MARCUS RN. REPORT GIVEN.
--- NOTE | 2025-02-16 14:32 | NUR ---
PT HAS 20G IV TO LEFT WRIST THAT FLUSHES WELL AND FLOWS TO GRAVITY.
[2025-02-16] MEDS ORDERED: FentaNYL Citrate 50 MCG/ML 2 ML Injection ONE (15:18)
[2025-02-16] MEDS ORDERED: Dexmedetomidine HCL 200 MCG / 2 ML ONE (16:03)
[2025-02-16] MEDS ORDERED: Etomidate 2MG / ML 10ML Vial ONE (16:03)
[2025-02-16] MEDS ORDERED: HydrALAZINE HCl 20 MG / ML 1ML Vial IV PRN (17:25)
[2025-02-16] MEDS ORDERED: HYDROmorphone HCl/Pf 1MG SYR IV PRN (17:25)
[2025-02-16] MEDS ORDERED: Ondansetron HCl 2 MG / ML 2ML Vial IV PRN (17:25)
[2025-02-16] MEDS ORDERED: ePHEDrine Sulfate 50 MG/ML 1ML Injection IV PRN (17:25)
[2025-02-16] MEDS ORDERED: FentaNYL Citrate 50 MCG/ML 2 ML Injection IV PRN ×2 (17:25→17:30)
--- NOTE | 2025-02-16 17:27 | NUR ---
PATIENT NPO THIS AM FOR SURGERY ON RIGHT HIP. PATIENT RESTED IN BED PRIOR TO LEAVING FLOOR FOR PROCEDURE. REPORT RECIEVED FROM PACU NURSE. PATIENT WILL RETURN TO ROOM AND RECOVER.
[2025-02-16] MEDS ORDERED: Lactobacil 2-S.Thermo-Bifido 1 1 Cap PO SCH (21:00)
[2025-02-16] MEDS ORDERED: NS 250 ML IV PRN (23:40)
[2025-02-17] MEDS ORDERED: CeFAZolin Sodium 1,000 MG in NS 50 ML IV SCH
[2025-02-17 00:11] VITALS: BP 133/65
[2025-02-17 04:49] VITALS: BP 127/59
--- NOTE | 2025-02-17 06:14 | NUR ---
SHIFT SUMMARY A/Ox4, BRIEF DE-SAT TO 88-90% WITH SLEEP; PT REFUSED CPAP OVERNIGHT. OTHER VSS ON RA. CONTINUOUS PULSE OX IN PLACE, TELE RUNNING NSR-ST RHYTHM. DROWSY EARLY IN THE SHIFT, MORE ALERT THIS AM. WOUND VAC AT 100 MMHG. PT REPORTS PAIN 0-1/10. MINIMAL ORAL INTAKE; SIPS ONLY. NO FOOD INTAKE.
[2025-02-17 06:21] LABS: BASOPHILS ABSOLUTE AUTO 0.00 K/mm3 (0.00-0.23); BASOPHILS PERCENT AUTO 0 % (0-2); EOSINOPHILS ABSOLUTE AUTO 0.00 K/mm3 (0.00-0.68); EOSINOPHILS PERCENT AUTO 0 % (0-6); Hematocrit 25.9 % (33.0-51.0); Hemoglobin 8.2 g/dL (11.5-16.0); IMMATURE GRAN ABSOLUTE AUTO 0.01 K/mm3 (0.00-0.10); IMMATURE GRAN PERCENT AUTO 1 % (0-1); LYMPHOCYTES ABSOLUTE AUTO 0.54 K/mm3 (0.84-5.20); LYMPHOCYTES PERCENT AUTO 25 % (21-46); MONOCYTES ABSOLUTE AUTO 0.09 K/mm3 (0.16-1.47); MONOCYTES PERCENT AUTO 4 % (4-13); Mean Corpuscular HGB Conc 31.7 g/dL (31.5-36.5); Mean Corpuscular Volume 100 fL (80-100); NEUTROPHILS ABSOLUTE AUTO 1.54 K/mm3 (1.96-9.15); NEUTROPHILS PERCENT AUTO 71 % (41-73); NRBC ABSOLUTE 0.00 K/mm3 (0.00-0.02); NRBC Auto 0.0 /100 WBC (0.0-0.2); Platelet Count 316 K/mm3 (150-400); RDW Coefficient Variation 16.5 % (11.7-14.2); RDW Standard Deviation 60.3 fL (35.1-46.3)
[2025-02-17 06:42] LABS: Anion Gap 13.0 mmol/L (3-11); Blood Urea Nitrogen 14.0 mg/dL (8-24); CO2, Blood 24.0 mmol/L (21-32); Calcium, Blood 8.4 mg/dL (8.5-10.1); Chloride, Blood 101.0 mmol/L (98-108); Creatinine, Blood 0.6 mg/dL (0.40-1.00); Glucose, Blood 92.0 mg/dL (70-99); Potassium, Blood 3.6 mmol/L (3.5-5.5); Sodium, Blood 134.0 mmol/L (136-145)
[2025-02-17 07:19] VITALS: BP 91/77
[2025-02-17 07:52] VITALS: BP 140/65
--- NOTE | 2025-02-17 11:49 | NUR ---
Pt. is awake in bed when she welcomes my visit. Daughter is at bedside. Pt. is engaged and alert and verbalizes her experience of her surgery that took place yesterday 02/16/25. Pt. displays evidence of a hopeful spirit. Consider matters of frank and family. prayed with the Pt. Pt. verbalized gratitude for the spiritual care visit and welcomed this customer expert to come again.
[2025-02-17 16:11] VITALS: BP 140/57
--- NOTE | 2025-02-17 16:54 | NUR ---
SHIFT SUMMARY PT AOX3, PT THINKS IT IS JANUARY 24, 2025, COOPERATIVE, ABLE TO MAKE NEEDS KNOWN. PT UNABLE TO RECALL EVENTS FROM THIS AM, EXHIBITING MEMORY PROBLEMS. HAS BEEN IN BED FOR DURATION OF SHIFT. TOLERATING MEDICATIONS. ASSESSED WOUND VAC, WOUND CARE ORDERS ARE IN. PURE WICK IN PLACE. ALTERNATED IV SITES, DOCUMENTED. BED IN LOWEST POSITION, CALL LIGHT WITHIN REACH.
[2025-02-17 20:12] VITALS: BP 134/64
[2025-02-18] MEDS ORDERED: CeFAZolin Sodium 1000 mg Vial ONE (00:03)
[2025-02-18 02:30] VITALS: BP 137/71
--- NOTE | 2025-02-18 04:36 | NUR ---
SHIFT SUMMARY 84 YR F ADMITTED ON 02/15/25. PER PT REQUEST, CODE STATUS WAS CHANGED FROM FULL CODE TO DNR. HOSPITALIST NOTIFIED AND STATUS ORDER CHANGED. PT MEDICATED PER EMAR FOR PAIN. RT SET PT UP WITH CPAP FOR NOC. PT C/O HAVING TROUBLE SLEEPING THIS SHIFT. WOUND VAC IN PLACE AND WORKING EFFECTIVELY. PT STATES SHE IS FEELING BETTER. PUREWIK IN PLACE AND WORKING WELL. BED IN LOW POSITION AND CALL LIGHT IN REACH.
[2025-02-18 06:22] LABS: BASOPHILS ABSOLUTE AUTO 0.03 K/mm3 (0.00-0.23); BASOPHILS PERCENT AUTO 1 % (0-2); EOSINOPHILS ABSOLUTE AUTO 0.12 K/mm3 (0.00-0.68); EOSINOPHILS PERCENT AUTO 2 % (0-6); Hematocrit 22.9 % (33.0-51.0); Hemoglobin 7.3 g/dL (11.5-16.0); IMMATURE GRAN ABSOLUTE AUTO 0.01 K/mm3 (0.00-0.10); IMMATURE GRAN PERCENT AUTO 0 % (0-1); LYMPHOCYTES ABSOLUTE AUTO 1.67 K/mm3 (0.84-5.20); LYMPHOCYTES PERCENT AUTO 31 % (21-46); MONOCYTES ABSOLUTE AUTO 0.85 K/mm3 (0.16-1.47); MONOCYTES PERCENT AUTO 16 % (4-13); Mean Corpuscular HGB Conc 31.9 g/dL (31.5-36.5); Mean Corpuscular Volume 100 fL (80-100); NEUTROPHILS ABSOLUTE AUTO 2.70 K/mm3 (1.96-9.15); NEUTROPHILS PERCENT AUTO 50 % (41-73); NRBC ABSOLUTE 0.00 K/mm3 (0.00-0.02); NRBC Auto 0.0 /100 WBC (0.0-0.2); Platelet Count 312 K/mm3 (150-400); RDW Coefficient Variation 16.7 % (11.7-14.2); RDW Standard Deviation 61.0 fL (35.1-46.3)
[2025-02-18 07:12] LABS: Anion Gap 8.0 mmol/L (3-11); Blood Urea Nitrogen 24.0 mg/dL (8-24); CO2, Blood 28.0 mmol/L (21-32); Calcium, Blood 8.3 mg/dL (8.5-10.1); Chloride, Blood 100.0 mmol/L (98-108); Creatinine, Blood 0.65 mg/dL (0.40-1.00); Glucose, Blood 82.0 mg/dL (70-99); Potassium, Blood 2.9 mmol/L (3.5-5.5); Sodium, Blood 133.0 mmol/L (136-145)
[2025-02-18 07:36] VITALS: BP 158/63
--- NOTE | 2025-02-18 13:03 | NUR ---
Pt. is awake in her bed when she welcomes my visits. No family are present during this visit. Facilitated an update. Pt. displayed evidence of being frustrated with the slow pace of her recovery. Listen with empathy and a calming and encouraging presence. Pt. displayed evidence of understanding and agreement. Prayed with the Pt. Pt. verbalized gratitude for the spiritual care visit and welcomed this community relations liaison to return.
[2025-02-18 15:24] VITALS: BP 149/63
--- NOTE | 2025-02-18 17:49 | NUR ---
SHIFT SUMMARY A&OX4, VSS, MEDICATED X1 FOR PAIN, X1 FOR NAUSEA, BEDRESTING EATING DINNER AT THIS TIME, CALL LIGHT IN REACH, WILL CONT TO MONITOR UNTIL REPORT GIVEN TO ONCOMING NURSE.
[2025-02-18 19:22] VITALS: BP 126/69
[2025-02-18] MEDS ORDERED: ZINC OXIDE/PETROLATUM, YELLOW 1 APPLIC/71 GM PASTE TOP SCH (21:00)
[2025-02-19 05:23] VITALS: BP 163/70
[2025-02-19 05:34] LABS: BASOPHILS ABSOLUTE AUTO 0.04 K/mm3 (0.00-0.23); BASOPHILS PERCENT AUTO 1 % (0-2); EOSINOPHILS ABSOLUTE AUTO 0.18 K/mm3 (0.00-0.68); EOSINOPHILS PERCENT AUTO 3 % (0-6); Hematocrit 25.4 % (33.0-51.0); Hemoglobin 8.0 g/dL (11.5-16.0); IMMATURE GRAN ABSOLUTE AUTO 0.02 K/mm3 (0.00-0.10); IMMATURE GRAN PERCENT AUTO 0 % (0-1); LYMPHOCYTES ABSOLUTE AUTO 1.45 K/mm3 (0.84-5.20); LYMPHOCYTES PERCENT AUTO 28 % (21-46); MONOCYTES ABSOLUTE AUTO 0.87 K/mm3 (0.16-1.47); MONOCYTES PERCENT AUTO 17 % (4-13); Mean Corpuscular HGB Conc 31.5 g/dL (31.5-36.5); Mean Corpuscular Volume 101 fL (80-100); NEUTROPHILS ABSOLUTE AUTO 2.69 K/mm3 (1.96-9.15); NEUTROPHILS PERCENT AUTO 51 % (41-73); NRBC ABSOLUTE 0.00 K/mm3 (0.00-0.02); NRBC Auto 0.0 /100 WBC (0.0-0.2); Platelet Count 316 K/mm3 (150-400); RDW Coefficient Variation 16.7 % (11.7-14.2); RDW Standard Deviation 60.9 fL (35.1-46.3)
[2025-02-19 06:01] LABS: Anion Gap 7.0 mmol/L (3-11); Blood Urea Nitrogen 18.0 mg/dL (8-24); CO2, Blood 30.0 mmol/L (21-32); Calcium, Blood 8.9 mg/dL (8.5-10.1); Chloride, Blood 101.0 mmol/L (98-108); Creatinine, Blood 0.57 mg/dL (0.40-1.00); Glucose, Blood 89.0 mg/dL (70-99); Potassium, Blood 3.7 mmol/L (3.5-5.5); Sodium, Blood 134.0 mmol/L (136-145)
--- NOTE | 2025-02-19 06:29 | NUR ---
Shift Summary Pt stated she charlotte't slept for near 48 hours at start of shift. Pt was able to sleep tonight between pt care. No acute changes. Wound vac dressing C/D/I with vac running, no alerts t/o the night. No c/o pain or nausea this shift except briefly during pt care. Pt is AOx4, NWB on R side. Purewick in place draining voids.
[2025-02-19 07:47] VITALS: BP 156/59
[2025-02-19 15:36] VITALS: BP 163/67
--- NOTE | 2025-02-19 15:45 | NUR ---
SHIFT SUMMARY MS LERMA IS OX4, APPROPRIATE CONVERSATION. SHE C/O 6/10 PAIN TO HER RIGHT HIP WHICH SHE DESCRIBED NOT MUCH PAIN. SHE HAS BEEN IN BED, TURNING FROM HER BACK AND ONTO HER LEFT SIDE. SHE HAS BEEN OFFERED ASSISTANCE WITH CARE AND MOVEMENT AND GENERALLY HAS RESPONDED THAT SHE WOULD LIKE TO SLEEP. SHE IS NON WEIGHT BEARING ON HER RIGHT LEG AND SAID SHE DOES NOT FEEL UP TO TRANSFERING TO THE CHAIR WITH ASSISTANCE. CONTINUOUS PULSE OX MID 90S ON ROOM AIR. WOUND VAC IN PLACE WITH BLOODY DRAINAGE. DR WHELAN SAID HE IS PLANNING TO DO THE WOUND VAC DRESSING TODAY, SUPPLIES AT BEDSIDE. BED LOW, CALL LIGHT IN REACH, BED ALARM ON.
--- NOTE | 2025-02-19 17:46 | NUR ---
WOUND VAC DRESSING CHANGED BY DR WHELAN TODAY. HE TOLD MS LERMA THAT HE WILL EVALUATE IT AGAIN ON SATURDAY.
[2025-02-19 19:51] VITALS: BP 155/56
[2025-02-20 02:25] VITALS: BP 148/53
--- NOTE | 2025-02-20 06:05 | NUR ---
Shift Summary Wound vac dressing C/D/I, only a small amount of output this shift. Pt does have some new excoriations from where she has been scratching her skin. I put a bandage on her R hip where she scratched and was bleeding. She is AOx4, NWB on her R side. Q2 turns when she allows. Medicated for pain per EMAR. Pt slept t/o most of the night.
[2025-02-20 06:13] LABS: BASOPHILS ABSOLUTE AUTO 0.05 K/mm3 (0.00-0.23); BASOPHILS PERCENT AUTO 1 % (0-2); EOSINOPHILS ABSOLUTE AUTO 0.22 K/mm3 (0.00-0.68); EOSINOPHILS PERCENT AUTO 4 % (0-6); Hematocrit 25.3 % (33.0-51.0); Hemoglobin 8.0 g/dL (11.5-16.0); IMMATURE GRAN ABSOLUTE AUTO 0.02 K/mm3 (0.00-0.10); IMMATURE GRAN PERCENT AUTO 0 % (0-1); LYMPHOCYTES ABSOLUTE AUTO 1.33 K/mm3 (0.84-5.20); LYMPHOCYTES PERCENT AUTO 23 % (21-46); MONOCYTES ABSOLUTE AUTO 0.85 K/mm3 (0.16-1.47); MONOCYTES PERCENT AUTO 14 % (4-13); Mean Corpuscular HGB Conc 31.6 g/dL (31.5-36.5); Mean Corpuscular Volume 100 fL (80-100); NEUTROPHILS ABSOLUTE AUTO 3.42 K/mm3 (1.96-9.15); NEUTROPHILS PERCENT AUTO 58 % (41-73); NRBC ABSOLUTE 0.00 K/mm3 (0.00-0.02); NRBC Auto 0.0 /100 WBC (0.0-0.2); Platelet Count 288 K/mm3 (150-400); RDW Coefficient Variation 16.3 % (11.7-14.2); RDW Standard Deviation 59.2 fL (35.1-46.3)
[2025-02-20 06:34] LABS: Anion Gap 8.0 mmol/L (3-11); Blood Urea Nitrogen 12.0 mg/dL (8-24); CO2, Blood 29.0 mmol/L (21-32); Calcium, Blood 8.8 mg/dL (8.5-10.1); Chloride, Blood 99.0 mmol/L (98-108); Creatinine, Blood 0.51 mg/dL (0.40-1.00); Glucose, Blood 91.0 mg/dL (70-99); Potassium, Blood 3.1 mmol/L (3.5-5.5); Sodium, Blood 133.0 mmol/L (136-145)
[2025-02-20 08:19] VITALS: BP 149/61
--- NOTE | 2025-02-20 13:09 | NUR ---
RN NOTE MS LERMA IS UP IN THE RECLINER. SHE WAS EDUCATED ON REASONS/BENEFITS OF MOVEMENT, BUT HAS BEEN RELUCTANT TO ALLOW US TO HELP HER GET OUT OF BED. SHE PREFERS TO LIE ON HER LEFT SIDE IN BED AND WHEN SITTING UP ON THE EDGE OF BED SHE TENDED TO LEAN OVER TO THE LEFT SIDE AND HAVE SOME DIFFICULTY PUSHING HERSELF UP STRAIGHT. WITH 2 PERSON ASSIST AND GAITBELT ON SHE PIVOTED TO THE RECLINER PUTTING WEIGHT ON HER LEFT LEG, KEEPING HER NON-WEIGHT BEARING RIGHT LEG IN FRONT OF HER. WOUND VAC IN PLACE. ON CONTINUOS PULSE OX IN THE S. INCONTINENT OF URINE, PURE WICK IN PLACE.
[2025-02-20 16:39] VITALS: BP 145/75
--- NOTE | 2025-02-20 18:38 | NUR ---
SHIFT REPORT MS REYES IS ORIENTATED X4. UP TO THE RECLINER TODAY, PHYSICAL THERAPIST HELPED TO TRANSFER HER BACK TO BED, TWO PERSON ASSIST TO TRANSFER. MS REYES TOOK OXY X1 WHICH SHE SAID WAS HELPFUL. WOUND VAC TO RIGHT HIP WOUND. SKIN TO COCCYX RED/EXCORIATED, CLEANSED AND NEW MEPILEX APPLIED. PANNIS AREA RED AND EXCORIATED CLEANSED AND ZINC CREAM APPLIED. REDNESS TO ORALIA AREA. RIGHT OLD INCISION SITE THAT WAS HEALED OVER HAS SMALL OPEN AREA, COVERED WITH MEPILEX. MS LERMA TENDS TO SCRATCH AT HER SKIN AND HAS ALEC ENCOURAGED NOT TO. POOR APPETITE. PT AND FAMILY ENCOURAGED TO AVOID THE CANDY UNTIL SHE HAS EATEN HER MEALS AND EDUCATED ON AVOIDING HIGH SUGAR DIET. ENSURE ENCOURAGED. NO BOWEL MOVEMENT TODAY. LAST DOCUMENTED BM 02/17. PT DENIES FEELING CONSTIPATED. FLUIDS ENCOURAGED. BED LOW, CALL LIGHT IN REACH.
[2025-02-20 19:41] VITALS: BP 143/59
[2025-02-21 02:57] VITALS: BP 156/65
--- NOTE | 2025-02-21 04:17 | NUR ---
PATIENT A/OX4, FLAT AFFECT AND WITHDRAWN. VSS, ON . WOUND VAC DRESSING TO R HIP C/D/I, NEXT CHANGE ON SATURDAY. PATIENT MEDICATED WITH OXYCODONE FOR PAIN WITH STATED RELIEF. REPOSITIONING Q2 HOURS. NWB TO R LEG. PUREWICK IN PLACE. CALLS APPROPRIATELY FOR ASSISTANCE. NO NEW CONCERNS THIS SHIFT.
[2025-02-21 07:04] LABS: BASOPHILS ABSOLUTE AUTO 0.04 K/mm3 (0.00-0.23); BASOPHILS PERCENT AUTO 1 % (0-2); EOSINOPHILS ABSOLUTE AUTO 0.25 K/mm3 (0.00-0.68); EOSINOPHILS PERCENT AUTO 4 % (0-6); Hematocrit 26.4 % (33.0-51.0); Hemoglobin 8.4 g/dL (11.5-16.0); IMMATURE GRAN ABSOLUTE AUTO 0.02 K/mm3 (0.00-0.10); IMMATURE GRAN PERCENT AUTO 0 % (0-1); LYMPHOCYTES ABSOLUTE AUTO 1.36 K/mm3 (0.84-5.20); LYMPHOCYTES PERCENT AUTO 24 % (21-46); MONOCYTES ABSOLUTE AUTO 0.74 K/mm3 (0.16-1.47); MONOCYTES PERCENT AUTO 13 % (4-13); Mean Corpuscular HGB Conc 31.8 g/dL (31.5-36.5); Mean Corpuscular Volume 98 fL (80-100); NEUTROPHILS ABSOLUTE AUTO 3.29 K/mm3 (1.96-9.15); NEUTROPHILS PERCENT AUTO 58 % (41-73); NRBC ABSOLUTE 0.00 K/mm3 (0.00-0.02); NRBC Auto 0.0 /100 WBC (0.0-0.2); Platelet Count 302 K/mm3 (150-400); RDW Coefficient Variation 16.4 % (11.7-14.2); RDW Standard Deviation 59.5 fL (35.1-46.3)
[2025-02-21 07:26] LABS: Anion Gap 8.0 mmol/L (3-11); Blood Urea Nitrogen 11.0 mg/dL (8-24); CO2, Blood 29.0 mmol/L (21-32); Calcium, Blood 8.8 mg/dL (8.5-10.1); Chloride, Blood 97.0 mmol/L (98-108); Creatinine, Blood 0.52 mg/dL (0.40-1.00); Glucose, Blood 88.0 mg/dL (70-99); Potassium, Blood 3.2 mmol/L (3.5-5.5); Sodium, Blood 131.0 mmol/L (136-145)
[2025-02-21 08:26] VITALS: BP 161/71
[2025-02-21] MEDS ORDERED: Potassium Chloride 10 Meq Tablet SA PO ONE (13:15)
[2025-02-21 15:49] VITALS: BP 150/68
--- NOTE | 2025-02-21 19:43 | NUR ---
PATIENT IS ALERT AND ORIENTED. C/O RIGHT HIP PAIN, MEDICATED PER EMAR. 2PA UP TO THE CHAIR, LIFT BACK TO BED. HER DAUGHTERS WERE AT THE BEDISDE TODAY. PATIENT NEEDS ALOT OF ENCOURAGEMENT TO GET OOB AND TO EAT. WOUND VAC IN PLACE AND SUCTIONING.
[2025-02-21 20:17] VITALS: BP 141/64
[2025-02-22 02:07] VITALS: BP 138/64
--- NOTE | 2025-02-22 05:08 | NUR ---
SHIFT SUMMARY: PT AOX3-4 WITH SOME CONFUSION AND FORGETFULNESS. FLAT MOOD AND AFFECT. CALLS APPROPRIATELY AND ABLE TO MAKE NEEDS KNOWN. PURE WICK IN PLACE WITH GOOD OUTPUT. PT SLEEPING INTERMITTENTLY. TOLERATING MEDICATIONS WELL. NO ACUTE OVERNIGHT EVENTS. WOUND VAC CDI DOES NOT APPEAR TO HAVE HAD MUCH OUTPUT THIS PM. PT IN BED SLEEPING, BED IN LOWEST POSITON, CALL LIGHT IN REACH. CONTINUING CARE.
[2025-02-22 05:42] LABS: BASOPHILS ABSOLUTE AUTO 0.03 K/mm3 (0.00-0.23); BASOPHILS PERCENT AUTO 1 % (0-2); EOSINOPHILS ABSOLUTE AUTO 0.25 K/mm3 (0.00-0.68); EOSINOPHILS PERCENT AUTO 4 % (0-6); Hematocrit 26.3 % (33.0-51.0); Hemoglobin 8.6 g/dL (11.5-16.0); IMMATURE GRAN ABSOLUTE AUTO 0.01 K/mm3 (0.00-0.10); IMMATURE GRAN PERCENT AUTO 0 % (0-1); LYMPHOCYTES ABSOLUTE AUTO 1.32 K/mm3 (0.84-5.20); LYMPHOCYTES PERCENT AUTO 21 % (21-46); MONOCYTES ABSOLUTE AUTO 0.94 K/mm3 (0.16-1.47); MONOCYTES PERCENT AUTO 15 % (4-13); Mean Corpuscular HGB Conc 32.7 g/dL (31.5-36.5); Mean Corpuscular Volume 97 fL (80-100); NEUTROPHILS ABSOLUTE AUTO 3.90 K/mm3 (1.96-9.15); NEUTROPHILS PERCENT AUTO 60 % (41-73); NRBC ABSOLUTE 0.00 K/mm3 (0.00-0.02); NRBC Auto 0.0 /100 WBC (0.0-0.2); Platelet Count 291 K/mm3 (150-400); RDW Coefficient Variation 16.1 % (11.7-14.2); RDW Standard Deviation 56.7 fL (35.1-46.3)
[2025-02-22 06:05] LABS: Anion Gap 7.0 mmol/L (3-11); Blood Urea Nitrogen 12.0 mg/dL (8-24); CO2, Blood 30.0 mmol/L (21-32); Calcium, Blood 9.0 mg/dL (8.5-10.1); Chloride, Blood 96.0 mmol/L (98-108); Creatinine, Blood 0.48 mg/dL (0.40-1.00); Glucose, Blood 96.0 mg/dL (70-99); Potassium, Blood 3.2 mmol/L (3.5-5.5); Sodium, Blood 130.0 mmol/L (136-145)
[2025-02-22 07:31] VITALS: BP 151/66
[2025-02-22] MEDS ORDERED: Enoxaparin 40 MG/0.4 ML SYR SC SCH (09:00)
[2025-02-22 15:26] VITALS: BP 144/59
--- NOTE | 2025-02-22 19:43 | NUR ---
SHIFT SUMMARY- PT ALERT AND ORIENTED TO SELF AND FAMILY. SHE HAS A WOUND VAC IN PLACE, DRESSING WAS SCHEDULED TO BE CHANGED TODAY BY DR WHELAN PER REPORT. RECOMENDATION OR DC SNF WAS CHANGED TO DC HOME WITH HOME HEALTH TO MANAGE THE WOUND VAC. PER DR DUGGAN THE DRESSING WAS NOT CHANGED TODAY IT WILL NEED TO BE CHANGED TOMORROW FOR HER DC HOME WITH THE HOME WOUND VAC. THE HOME WOUND VAC IS IN THE UNOPENED BOX IN THE ROOM. BEDSIDE REPORT COMPLETED WITH NIGHT RN, PT REPOSITIONED AT THE TIME OF BEDSIDE REPORT AND HAD NO S&S OF DISTRESS NOTED AT THAT TIME.
[2025-02-22 20:38] VITALS: BP 144/67
--- NOTE | 2025-02-23 00:10 | NUR ---
NURSING NOTE: WHILE ON BREAK, PER BREAKSHIFT NURSE, PT HAD REMOVED HER WOUNDVAC IN HER SLEEP. RIPPING OFF A MAJORITY OF IT. BREAK NURSE ASSESSED THE WOUND AND REDRESSED THE WOUND VAC. PER DAYSHIFT REPORT ON 02/21/25, CONSULTED PROVIDER WAS SUPPOSED TO COME ASSESS WOUND ON 02/22, PER DAY SHIFT, PROVIDER WAS NOT ABLE TO COME ASSESS THE WOUND AND CHANGE WOUND VAC. BREAK NURSE REPORTS THAT THERE IS A LOT OF TISSUE AND ESCAR IN THE WOUND SITE. WOUNDVAC REDRESSED AND HOLDING VACUUM CURRENTLY. PT MEDICATED FOR PAIN AND ENDORSES THAT SHE DOESNT REMEMBER REMOVING THE DRESSING INTENTIONALLY. PT IN BED SLEEPING, BED IN LOWEST POSITION, AND CALL LIGHT IN REACH. CONTINUING CARE.
--- NOTE | 2025-02-23 04:53 | NUR ---
SHIFT SUMMARY: PT AOX3-4 SOME CONFUSION AND FORGETFULNESS. DID NOT TOLERATE CPAP AND WAS SATTING WELL WITHOUT IT ON RA EVEN WHILE SLEEPING. PT REMOVED WOUND VAC IN HER SLEEP. WOUNDVAC REPLACED BY BREAK NURSE. BREAK NURSE STATES THERE WAS A LOT OF ESCHAR AND CONSULTING PROVIDER SAID THEY WOULD SEE THE WOUND BEFORE DC WHICH THEY HAVE NOT SEEN YET. SEE NURSING NOTE FOR MORE DETAILS. PT TOLERATING MEDICATIONS WELL. STILL VERY FLAT AFFECT AND WITHDRAWN. PT IN BED SLEEPING, BED IN LOWEST POSITION, CALL LIGHT IN REACH. CONTINUING CARE.
[2025-02-23 05:24] VITALS: BP 148/54
[2025-02-23 06:47] LABS: BASOPHILS ABSOLUTE AUTO 0.05 K/mm3 (0.00-0.23); BASOPHILS PERCENT AUTO 1 % (0-2); EOSINOPHILS ABSOLUTE AUTO 0.28 K/mm3 (0.00-0.68); EOSINOPHILS PERCENT AUTO 4 % (0-6); Hematocrit 27.0 % (33.0-51.0); Hemoglobin 8.6 g/dL (11.5-16.0); IMMATURE GRAN ABSOLUTE AUTO 0.02 K/mm3 (0.00-0.10); IMMATURE GRAN PERCENT AUTO 0 % (0-1); LYMPHOCYTES ABSOLUTE AUTO 1.33 K/mm3 (0.84-5.20); LYMPHOCYTES PERCENT AUTO 19 % (21-46); MONOCYTES ABSOLUTE AUTO 1.06 K/mm3 (0.16-1.47); MONOCYTES PERCENT AUTO 15 % (4-13); Mean Corpuscular HGB Conc 31.9 g/dL (31.5-36.5); Mean Corpuscular Volume 99 fL (80-100); NEUTROPHILS ABSOLUTE AUTO 4.22 K/mm3 (1.96-9.15); NEUTROPHILS PERCENT AUTO 61 % (41-73); NRBC ABSOLUTE 0.00 K/mm3 (0.00-0.02); NRBC Auto 0.0 /100 WBC (0.0-0.2); Platelet Count 284 K/mm3 (150-400); RDW Coefficient Variation 16.0 % (11.7-14.2); RDW Standard Deviation 56.5 fL (35.1-46.3)
[2025-02-23 07:12] LABS: Alanine Aminotransfer (ALT/SGP <6 U/L (12-78); Albumin, Blood 2.3 g/dL (3.4-5.0); Albumin/Globulin Ratio 0.7 (0.8-1.8); Anion Gap 8 mmol/L (3-11); Aspartate Aminotrans (AST/SGOT 23 U/L (12-37); Bilirubin, Total 0.4 mg/dL (0.1-1.0); Blood Urea Nitrogen 19 mg/dL (8-24); CO2, Blood 29 mmol/L (21-32); Calcium, Blood 8.7 mg/dL (8.5-10.1); Chloride, Blood 96 mmol/L (98-108); Creatinine, Blood 0.50 mg/dL (0.40-1.00); Globulin, Blood 3.4 g/dL (2.2-4.0); Glucose, Blood 90 mg/dL (70-99); Potassium, Blood 3.0 mmol/L (3.5-5.5); Sodium, Blood 130 mmol/L (136-145); Total Protein, Blood 5.7 g/dL (6.4-8.2)
[2025-02-23 07:17] VITALS: BP 140/57
--- NOTE | 2025-02-23 15:00 | NUR ---
P.t is awake in bed and welcomes my visit. Pt. displays evidence of depression and weakness. Pt. verbalized that she had a good day of moving yesterday, but that she felt very tired today. Advisory Application Developer care, encouragement, and spiritual insights are shared with the Pt. who displayed evidence of understanding and agreement. Prayed with the Pt. Pt. was somnolent when I said "amen." Will remain available.
[2025-02-23 15:10] VITALS: BP 145/68
--- NOTE | 2025-02-23 19:21 | NUR ---
SUMMARY PART TIME RECEPTIONIST PICKED UP PT'S HOME WOUND VAC SYSTEM UNTIL PLAN OF CARE IS FINALIZED. DR. DUGGAN HAD A LONG CONVERSATION WITH PT SULMA MORRIS AT BEDSIDE ABOUT PT'S GOALS AND DESIRES. PT UNMOTIVATED AND HAS BEEN REFUSING THERAPY HERE. SULMA WORRIED ABOUT PT COMING HOME WITH WOUND VAC AND WOULD LIKE HER TO CONTINUE TO RECIEVE THERAPY. PT A/OX2 FORGETFUL TO SITUATION AND DATE. PT OVERESTIMATES/FORGETFUL OF ABILITIES. PALLIATIVE CARE IS NOW CONSULTED TO DISCUSS PT DESIRES. UNSURE OF PLAN AT THIS TIME, PALLIATIVE DID NOT ROUND ON PT TODAY.
[2025-02-23 21:55] VITALS: BP 149/78
--- NOTE | 2025-02-24 04:28 | NUR ---
SHIFT SUMMARY: PT AOX2-3 UNSURE OF TIME AND UNDERSTANDS SHES IN THE HOSPITAL FOR SOMETHING BUT NOT SURE OF EXACT SITUATION. MORE DROWSY AND TIRED THAN PREVIOUS NIGHTS, STILL AROUSABLE BUT HAS DIFFICULTY FOLLOWING DIRECTIONS. PT SATTING >92% ON RA EVEN WHILE ASLEEP. PT COMPLAINED OF SOME NAUSEA, MEDICATED PER EMR. PT IN BED SLEEPING, BED IN LOWEST POSITION, CALL LIGHT IN REACH. CONTINUING CARE.
[2025-02-24 05:18] VITALS: BP 145/66
[2025-02-24 05:56] LABS: BASOPHILS ABSOLUTE AUTO 0.03 K/mm3 (0.00-0.23); BASOPHILS PERCENT AUTO 1 % (0-2); EOSINOPHILS ABSOLUTE AUTO 0.25 K/mm3 (0.00-0.68); EOSINOPHILS PERCENT AUTO 4 % (0-6); Hematocrit 25.7 % (33.0-51.0); Hemoglobin 8.2 g/dL (11.5-16.0); IMMATURE GRAN ABSOLUTE AUTO 0.01 K/mm3 (0.00-0.10); IMMATURE GRAN PERCENT AUTO 0 % (0-1); LYMPHOCYTES ABSOLUTE AUTO 1.43 K/mm3 (0.84-5.20); LYMPHOCYTES PERCENT AUTO 25 % (21-46); MONOCYTES ABSOLUTE AUTO 0.92 K/mm3 (0.16-1.47); MONOCYTES PERCENT AUTO 16 % (4-13); Mean Corpuscular HGB Conc 31.9 g/dL (31.5-36.5); Mean Corpuscular Volume 99 fL (80-100); NEUTROPHILS ABSOLUTE AUTO 3.06 K/mm3 (1.96-9.15); NEUTROPHILS PERCENT AUTO 54 % (41-73); NRBC ABSOLUTE 0.00 K/mm3 (0.00-0.02); NRBC Auto 0.0 /100 WBC (0.0-0.2); Platelet Count 281 K/mm3 (150-400); RDW Coefficient Variation 16.0 % (11.7-14.2); RDW Standard Deviation 57.5 fL (35.1-46.3)
[2025-02-24 06:22] LABS: Anion Gap 8.0 mmol/L (3-11); Blood Urea Nitrogen 17.0 mg/dL (8-24); CO2, Blood 30.0 mmol/L (21-32); Calcium, Blood 8.6 mg/dL (8.5-10.1); Chloride, Blood 98.0 mmol/L (98-108); Creatinine, Blood 0.54 mg/dL (0.40-1.00); Glucose, Blood 83.0 mg/dL (70-99); Potassium, Blood 3.5 mmol/L (3.5-5.5); Sodium, Blood 132.0 mmol/L (136-145)
[2025-02-24 07:35] VITALS: BP 154/64
[2025-02-24 16:41] VITALS: BP 139/60
--- NOTE | 2025-02-24 18:40 | NUR ---
Spiritual Care Visit. Pt. is awake in bed and her two daughters are present when they welcomed my visit. Pt. verbalized that she will be going home on Hospice. WHen family asked questions, this project admin normalized the Pt. experience. Pstoral encouragement is given and received. Pt. and daughters all verbalized gratitude for the spiritual care visit.
[2025-02-24 20:39] VITALS: BP 143/73
[2025-02-25 03:36] VITALS: BP 156/66
--- NOTE | 2025-02-25 05:20 | NUR ---
SHIFT SUMMARY NOC PT A/O X 3. PLEASANT AND COOPERATIVE WITH CARE. VSS. NO ACUTE CHANGES TO REPORT. PT HAS WOUND VAC IN PLACE ON R HIP WITH SEROSANGUINOUS DRAINAGE. PT ON 2L/NC FOR SLEEPING SPO2 >92%. IV ABX PER EMAR. PT HAS PUREWICK IN PLACE. PT TO DISCHARGE TODAY ON [facility]. WITH BED IN LOWEST POSITION, AND CALL LIGHT WITHIN REACH.
[2025-02-25 07:25] VITALS: BP 156/69
[2025-02-25 15:42] VITALS: BP 165/80
--- NOTE | 2025-02-25 17:12 | NUR ---
SHIFT SUMMARY PT IS A/OX3-4. LIFT PT. PT DECLINED PHYSICAL THERAPY THIS MORNING. PURWICK IN PLACE DRAINING CLEAR, YELLOW URINE. ON RA, SATS >92%. WOUND VAC IN PATENT WITH GOOD OUTPUT. PT HAS LITTLE PO INTAKE. DAUGHTERS AT BEDSIDE THIS AFTERNOON AND SPOKE WITH PALLIATIVE CARE. PLAN TO DC HOME WITH HOSPICE ON SATURDAY. PT IS PLEASANT AND COOPERATIVE WITH CARE AND CALLS APPROPRIATELY USING THE CALL LIGHT.
[2025-02-25 20:03] VITALS: BP 150/70
[2025-02-26 03:54] VITALS: BP 165/76
--- NOTE | 2025-02-26 05:41 | NUR ---
Shift Summary Midshift at roughly 2300, I assumed care of patient from Delilah Barton RN. Patient is pleasantly forgetful but oriented to self, hospital, and slightly of situation. Following directions and talkative when awake. Patient asking questions about discharge and sharing with me that she will be getting a hospital bed delivered to her house, but she does not know where it will come from. Admitted for dehisence of R hip incision. No c/o pain. When asked, pt reports that her pain is good at the moment. Slept on and off tonight. Wound vac in place on continuous suction @ 100mmHg draining serosangunious drainage. Wound vac Dressing will need to be changed sometime today and photos taken. It seems last vac drsg change was on 02/23. Per wound care order, vac dressing to be change every 2-3 days. Meds whole with water.
[2025-02-26 07:23] VITALS: BP 159/72
--- NOTE | 2025-02-26 07:41 | NUR ---
Wound Vac Cannister changed this morning. Output was brownish serosanguineous clear liquid, about 600cc. It seems 02/23/2025 was the last dressing change done. Passed onto oncoming RN that wound vac dressing would need to be changed today per wound vac order.
--- NOTE | 2025-02-26 14:53 | NUR ---
Spiritual Care Visit. Pt. is awake in bed when she greets this air crew supervisor with a smile. Pt. is pleasant but displays evidence of having some discomfort with her catheter. Pt. verbalizes an extectation of going home on hospice on Saturday. Pt. displays evidence of mixed emotions about it. Listen with empathy and a calming presence. Prayed with the Pt. Pt. dislpayed evidence of being encouraged and verbalizes gratitude for the spiritual care visit(s).
[2025-02-26 15:55] VITALS: BP 142/74
[2025-02-26] MEDS ORDERED: Piperacillin/Tazobactam Sod 3.375 GM in NS 100 ML IV SCH (17:12)
--- NOTE | 2025-02-26 17:30 | NUR ---
SHIFT SUMMARY PT A&OX2-3 UNSURE OF DATE AND SITUATION IN AM, A&OX4 IN AFTERNOON. WOUND VAC DRESSING CHANGED TODAY, PT TOLERATED WELL. PAIN MANAGED WITH PRN OXYCODONE AND TYLENOL. 1 BM THIS SHIFT IN BRIEF, PUREWICK IN PLACE WITH CLEAR YELLOW URINE. PROTIEN ENCOURAGED. WHEN CHANGING PT RED/MOIST SKIN NOTED UNDER SKIN FOLD IN LEFT SIDE OF ABDOMEN, NYSTATIN POWDER ORDERED. MEPILEX ON COCCYX REPLACED TODAY D/T SOILING. PT DAUGHTERS AT BEDSIDE, PT LOOKING FORWARD TO GOING HOME ON SATURDAY. ABLE TO MAKE NEEDS KNOWN, CALL LIGHT IN REACH.
[2025-02-26 19:50] VITALS: BP 142/63
[2025-02-26] MEDS ORDERED: Miconazole Nitrate 2% 85 GM PWD TOP SCH (21:00)
[2025-02-27 04:04] VITALS: BP 141/62
--- NOTE | 2025-02-27 06:51 | NUR ---
SHIFT SUMMARY A/Ox2, DISORIENTED TO SITUATION AND TIME. VSS ON RA, PT REFUSED CPAP OVERNIGHT. CONTINUOUS PULSE OX IN PLACE. PT REPORTS R HIP PAIN, MANAGED PER AUG. NO ACUTE CHANGES OVERNIGHT. SAFETY PRECAUTIONS IN PLACE, CALL LIGHT IN REACH.
[2025-02-27 07:52] VITALS: BP 167/70
[2025-02-27 16:06] VITALS: BP 159/72
--- NOTE | 2025-02-27 16:27 | NUR ---
PT IS GOING HOME TOMORROW WITH DAUGHTER COOPER, TO BE ADMITTED TO [facility]. PLAN FOR 9AM RIDE PICK-UP, 10AM HOSPICE ADMISSION.
--- NOTE | 2025-02-27 17:58 | NUR ---
SHIFT SUMMARY PATIENT DECLINING SEVERAL TIMES FOR POSITIONING AND TURNING, HAVE TO ENCOURAGE AND INSIST BEFORE PATIENT ALLOWS. DISCHARGE SET UP FOR 0900 TOMORROW. CM ARRANGING TRANSPORT. WOUND VAC FUNCTIONING AT 100MM SUCTION, DRESSING INTACT, SMALL AMOUNT OF DRAINAGE. A/O X2-3 THIS SHIFT. CALL LIGHT IN REACH. CALLED DR COBB TO DC CPAP ORDERS PATIENT HAS BEEN DECLINING TO USE, HE OKAYED.
--- NOTE | 2025-02-27 18:22 | NUR ---
CLARIFIED WITH DR COBB REGARDING WOUND VAC AND STARK PLACEMENT. WOUND VAC TO BE REMOVED AND STARK PLACED PRIOR TO DISCHARGE.
[2025-02-27 19:14] VITALS: BP 145/55
[2025-02-28 05:31] VITALS: BP 151/57
[2025-02-28 05:49] VITALS: BP 176/83
--- NOTE | 2025-02-28 07:16 | NUR ---
SHIFT SUMMARY A/Ox2, DISORIENTED TO TIME AND SITUATION. WOUND VAC REMOVED, STARK CATH PLACED; PT TOLERATED WELL. PT DENIED PAIN, PRE-MEDICATED FOR CATH INSERTION.
[2025-02-28 07:33] VITALS: BP 152/68
--- NOTE | 2025-02-28 11:41 | NUR ---
DISCHARGE SUMMARY PATIEMT DISCHARGED HOME WITH HOSPICE. SHAMA IS CONTACT AT [facility] THIS SHIFT. WAS CONTACTED WITH DISCHARGE TIME. DISCHARGE PACKET SENT WITH PATIENT, INCLUDING HARD SCRIPT FOR OXY. DRESSING TO RIGHT HIP IN PLACE, CDI. PATIENT PLEASANT, ABLE TO MAKE NEEDS KNOWN.
== END 2025-02-28 11:03 | disposition hospice, home (50) | DRG 902 ==
LOC: ER 16:57 → MEDS 16:58
PROVIDERS: Emergency Medicine; Family Medicine; Internal Medicine; Orthopaedic Surgery; ADMIT Internal Medicine
PROC: 5A09357 Assistance with Respiratory Ventilation, Less than 24 Consecutive Hours, Continuous Positive Airway Pressure (ICD-10-PCS; 2025-02-16)
PROC: 3E03329 Introduction of Other Anti-infective into Peripheral Vein, Percutaneous Approach (ICD-10-PCS; 2025-02-16)
PROC: 0JBL0ZZ Excision of Right Upper Leg Subcutaneous Tissue and Fascia, Open Approach (ICD-10-PCS; principal; 2025-02-16 15:00)
PROC: 0T9B70Z Drainage of Bladder with Drainage Device, Via Natural or Artificial Opening (ICD-10-PCS; 2025-02-27)
DX: T81.31XA Disruption of external operation (surgical) wound, not elsewhere classified, initial encounter (principal); E87.1 Hypo-osmolality and hyponatremia; I96 Gangrene, not elsewhere classified; Y83.8 Other surgical procedures as the cause of abnormal reaction of the patient, or of later complication, without mention of misadventure at the time of the procedure; G47.33 Obstructive sleep apnea (adult) (pediatric); E66.01 Morbid (severe) obesity due to excess calories; Z66 Do not resuscitate; D64.9 Anemia, unspecified; I10 Essential (primary) hypertension; J44.9 Chronic obstructive pulmonary disease, unspecified; L76.82 Other postprocedural complications of skin and subcutaneous tissue; E78.5 Hyperlipidemia, unspecified; E03.9 Hypothyroidism, unspecified; M79.7 Fibromyalgia; L40.50 Arthropathic psoriasis, unspecified; K58.9 Irritable bowel syndrome, unspecified; E87.6 Hypokalemia; Z96.641 Presence of right artificial hip joint; Z88.8 Allergy status to other drugs, medicaments and biological substances; Z79.899 Other long term (current) drug therapy; Z79.890 Hormone replacement therapy; Z79.631 Long term (current) use of antimetabolite agent; Z79.01 Long term (current) use of anticoagulants; Z87.891 Personal history of nicotine dependence; Z68.34 Body mass index [BMI] 34.0-34.9, adult
CPT/HCPCS: 36415; 51702; 80048; 80053; 85025; 86850; 86900; 86901; 87070; 87075; 87205; 94660; 94760; 94762; 96365; 96366; 96376; 97110; 97162; 97530; 99284; A9270; G0378; J0690; J1650; J2405; J2704; J3010; J7030; J7050; J7120